=== PATIENT | female | born 1940 | race Caucasian/White ===

== ENCOUNTER 2024-10-09 11:12 | Outpatient (OUT) | payer MEDICARE, MEDICAID, SELFPAY ==
--- OUTSIDE RECORDS SUMMARY | 2024-10-09 06:49 | XMS_ITS | Continuity of Care Document ---
Author Organization [facility] Address [address] [place] [address] Phone Care Team Providers Care Peripheral Equipment Operator Name Role Phone Nando Zaldivar DO Attending Provider Christophe Chavez MD Primary Care Provider Care Teams Patient Care Team Team Status: Active Member Role Status Dates Christophe Chavez MD Primary Care Provider Active Patient Care Team Team Status: Inactive Member Role Status Dates Nando Zaldivar DO Attending Provider Active Start: October 09, 2024 End: October 09, 2024 Christophe Chavez MD Primary Care Provider Active S tart: October 09, 2024 End: October 09, 2024 Chief Complaint and Reason for Visit Reason for Visit Admit Date Late onset Alzheimer's demen tia without behavioral disturbance October 09, 2024 10:00am Allergies, Adverse Reactions, Alerts Allergen Type Severity Reaction Last Updated Verified Status No Known Allergies Allergy Unknown October 09, 2024 10:08 am Yes Active Social History Smoking Status Unknown if ever smoked Observation Status Observation Response Date of Response Legal Sex Female (finding) Sex Assigned At Female July Problems Active Problems Medical Problem Onset Date Status Late onset Alzheimer's dementia without behavior al disturbance Unknown Active Medications Medication Status Dose Units Route Directions Qty Days St art Date Stop Date End Date Instructions Adherence Atorvastati n 20 mg tablet Active 20 MG PO Daily October 09, 2024 12:00a m Complies with drug therapy Ibuprofen 600 mg tablet Active 600 MG PO Every 8 hours as needed October 09, 2024 12:00a m Complies with drug therapy Losartan 100 mg tablet Active 100 MG PO Daily October 09, 2024 12:00a m Complies with drug therapy Apixaban (Eliquis) 5 mg tablet Active 5 MG PO Twice daily October 09, 2024 12:00a m Complies with drug therapy Vital Signs Vital Reading Result Reference Range Collection Date/Time Weight 73.14 kg October 09, 2024 10:05am Heart Rate 88 /min 60-100 October 09, 2024 10:05am Oxygen saturation by Pulse oximetry 97 % 95-100 October 09, 2024 10:0 5am BP Systolic 152 mm[Hg] 100-140 October 09, 2024 10:05am BP Diastolic 84 mm[Hg] 60-100 October 09, 2024 10:05am Advance Directives Advance Directive Response Recorded Date/ Time Advance Directives No October 09 9:52am Insurance Providers Guarantor Janis Vargas Address [address] [place] [address] [id number] [place] [id number] Contact Info. Home Phone: Payer Policy Id Subscriber's Name Subscriber Id Effectiv e Date Expiration Date Medicaid [id number] Janis Vargas [id number] [employer] [facility] [id number] Janiskaleigh Vargas [id number] Encounters Encounter Location(s) Arrival/Admit Date Discharge/Depart Date Provider(s) Departed Physician/Prov ider Office Visit -[facility] [place] October 09, 2024 10:00am October 09, 2024 10:48am Jhon Chou DO Recent Diagnosis Onset Date Admit Date Late onset Alzheimer's demen tia without behavioral disturbance Unknown October 09, 2024 10:00am Assessments Diagnosis Onset Date Resolution Status Admit Date Late onset Alzheimer's demen tia without behavioral disturbance acute J 2024 10:00am Plan of Treatment Author Nando Zaldivar [facility] Authored October 09, 2024 10:4 6am It is my impression that the patient has severe memory impairment. Her Ko cognitive assessment today was 3/30. She did have some inattention which I think may have made this worse and she is actually capable of. However, I do feel that Alzheimer's dementia is our most likely diagnosis. We will need to rule out other reversible causes. Examination shows memory deficit and is otherwise largely unremarkable. Plan: MRI of the brain with and without contrast Check vitamin B12 Patient has previously trialed and failed Namenda We did discuss Aricept and the patient and family have politely declined Family was with her today and provided additional history he was understanding and agreeable to the plan Future Tests Future scheduled test information is unavailable Pending Tests Test Name Ordered Date Scheduled Date MR head/brain wo/w con October 09, 2024 10:46am Future Visits Future appointment information is unavailable Referrals to Other Providers Referral information is unavailable Future Procedures Procedure Name Ordered Date Scheduled Date Vitamin B12 October 09, 2024 10:46am Future Medications Future medication information is unavailable Patient Instructions Patient instructions are unavailable
--- OUTSIDE RECORDS SUMMARY | 2024-10-09 11:26 | XMS_ITS | Clinical Summary ---
Author Organization [employer] Address [id number] [address] [place] [address] Care Team Providers Care Cnc Operator Programmer Name Role Phone Christophe Chavez MD Primary Care Provider [phone] Allergies No known active allergies Medications multivit-minera ls/ferrous fum (MULTI VITAMIN ORAL) Take by mouth daily. Active polyethylene glycol (GLYCOLAX) 17 gram/dose powderIndicatio ns:Constipation , unspecified constipation type Take 17 g by mouth daily. 850 g 1 05/10/19 22 Active Additional Information Patient not taking.Reported on 05/31/2024 omega 1-cwf-bsk-fish oil 300-1,000 mg capsule Take by mouth. Acti ve ibuprofen (MOTRIN) 600 mg tablet Take 1 tablet (600 mg total) by mouth every 6 (six) hours as needed for pain. 30 tablet 02/05/20 22 Active memantine (NAMENDA) 5 mg tabletIndicatio ns:Memory problem,Mild dementia, unspecified dementia type, unspecified whether behavioral, psychotic, or mood disturbance or anxiety (CMS-HCC) Take 1 tablet (5 mg total) by mouth in the morning and 1 tablet (5 mg total) before bedtime. 60 tablet 5 10/12/19 24 Active Additional Information Patient not taking.Reported on 05/31/2024 apixaban (ELIQUIS DVT-PE TREAT 30D START) 5 mg (74 tabs) tablets,dose pack tablet Take 2 tablets by mouth twice daily for 7 days, then take 1 tablet twice daily 74 tablet 05/01/19 25 Active Additional Information Patient not taking.Reported on 05/31/2024 atorvastatin (LIPITOR) 20 mg tabletIndicatio ns:Essential hypertension TAKE 1 TABLET BY MOUTH IN THE MORNING 90 tablet 09/12/19 25 Active ELIQUIS 5 mg tablet TAKE 1 TABLET BY MOUTH IN THE MORNING AND 1 AT BEDTIME 60 tablet 09/20/19 25 Active losartan (COZAAR) 100 mg tabletIndicatio ns:Essential hypertension Take 1 tablet by mouth once daily 100 tablet 09/20/19 25 Active losartan (COZAAR) 100 mg tabletIndicatio ns:Essential hypertension Take 1 tablet by mouth once daily 90 tablet 2 02/21/20 24 025 Discontinued apixaban (ELIQUIS) 5 mg tablet Take 1 tablet (5 mg total) by mouth in the morning and 1 tablet (5 mg total) before bedtime. 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/05/2023 Hyperlipidemia 05/05/2023 Hyperglycemia 05/05/2023 Essential hypertension 09/20/2018 Encounters Date Type Department Care Team Description 09/19/2024 Refill [facility] [address] [place] [phone] Christophe Chavez MD Essential hypertension 09/14/2024 Refill [facility] [address] [place] [phone] Christophe Chavez MD 09/11/2024 Refill [facility] [address] [address] Christophe Chavez MD Essential hypertension 09/08/2024 Refill [facility] [address] [place] [address] [place] [address] Christophe Chavez MD Essential hypertension 08/28/2024 Orders Only [facility] [address] [place] [address] [place] [address] Christophe Chavez MD Mild vascular dementia, unspecified whether behavioral, psychotic, or mood disturbance or anxiety (CMS-HCC) (Primary Dx) 08/26/2024 Telephone [facility] [address] [place] [address] [place] [address] Christophe Chavez MD 08/25/2024 8:50 PM EDT - 08/25/2024 10:14 PM EDT Emergency [facility] - Emergency [address] [place] [phone] Karen Kelley MD Confusion (Primary Dx) Discharge Disposition: Home 08/25/2024 Travel from Last 3 Months Immunizations Immunization Administration Dates Next Due Influenza High Dose Preservative Free IM 021,03/26/2019 Influenza, High-dose, Quadrivalent 02/20/2020 Pneumococcal Conjugate 13-Valent 03/26/2019 Pneumococcal Polysaccharide 04/29/2021 Tdap 05/23/2024 Family History Medical History Relation Name Comments Cancer Father Diabetes Mother Hypertension Mother Relation Name Status Comments Father Mother Social History Tobacco Use Types Packs/Day Years Used Date Smoking Tobacco: Former Cigarettes 0.5 20 Smokeless Tobacco: Never Tobacco Cessation:Counseling Given: Not Answered Comments:not interested in quitting Alcohol Use Standard Drinks/Week Comments Not Currently 0 (1 standard drink = 0.6 oz pur e alcohol) Social Connection and Isolation Panel [NHANES] A nswer Date Recorded Frequency of Communication with Friends and Fami ly Three times a week 10/09/2018 Frequency of Social Gatherin gs with Friends and Family Three times a week 10/09/2018 Attends Congregational Services Never 10/09 Active Member of Clubs or Organizations No 10/09/2018 Attends Club or Organization Meetings Never 10/09/2018 Marital Status 10/09/2018 AUDIT-C Answer Date Recorded Frequency of Alcohol Consumption Never 10/09/2018 Average Number of Drinks Patient declined 2018 Frequency of Binge Drinking Never 09/16 Overall Financial Resource Strain (CARDIA) Answe r Date Recorded Difficulty of Paying Living Expenses Somewhat de la rosa rd 10/09/2018 PHQ-2 Answer Date Recorded Total Score 0 05/31/2024 [facility] of Occupat ional Health - Occupational Stress Questionnaire Answer Date Recorded Feeling of Stress To some extent 10/09/2018 Exercise Vital Sign Answer Date Recorde d Days of Exercise per Week 0 days 2018 Minutes of Exercise per Session 0 min 10/09/2018 PRAPARE - Transportation Answer Date Re corded Lack of Transportation (Medical) No 10/09/2018 Lack of Transportation (Non-Medical) No 10/09/2018 Childcare Answer Date Recorded Childcare No 10/09/2018 Employment Answer Date Recorded Employment No 10/09/2018 Hunger Screening Answer Date Recorded Within the past 12 months we worried whether our food would run out before we got money to buy more. Never True 08/25/2024 Within the past 12 months th e food we bought just didn't last and we didn't have money to get more. Never True 08/25/2024 Purpose - Life Answer Date Recorded Purpose and direction in life Unknown Education Answer Date Recorded What is the highest level of school you have completed or the highest degree you have received? 10th grade 10/09/2018 Comments No Sex and Gender Information Value Date Recorded Sex Assigned at Not on file Legal Sex Female 11:28 AM EDT Gender Identity Not on file Sexual Orientation Not on file Last Filed Vital Signs Vital Sign Reading Time Taken Comments Blood Pressure 161/71 08/25/2024 10:00 PM EDT Pulse 88 08/25/2024 10:00 PM EDT Temperature 37.1 C (98.7 F) 08/25/2024 8:54 PM EDT Respiratory Rate 18 08/25/2024 10:0 0 PM EDT Oxygen Saturation 95% 08/25/2024 10: 00 PM EDT Inhaled Oxygen Concentration - - Weight 75.3 kg (165 lb 14.4 oz) 08/25/2024 8:54 PM EDT Height 154.9 cm (5' 1 ) 08/25/2024 8:54 PM EDT Body Mass Index 31.35 08/25/2024 8:54 PM EDT Plan of Treatment Health Maintenance Due Date Last Done Comments Zoster (Shingles) Vaccine (1 of 2) 1992 Medicare Annual Wellness Visit 04/29/2022 0 04/29/2021, 04/06/2020, 03/26/2019 Fall Risk Screening 01/07/2023 01/07/2022 Influenza Vaccine 12/16/2024 03/23/2021, , 03/26/2019 Depression Screening 05/31/2025 05/31/2024 Tobacco Screening 08/25/2025 08/25/2024 DTaP,Tdap and Td Vaccines (2 - Td or Tdap) 05/23/2034 05/23/2024 Medical Devices Not on file [place] [id number] [place] [address] [employer] MED[employer] WORKER'S COMPENSATION Care Teams Cnc Operator Programmer Relationship Specialty Start Date End Date Christophe Chavez MD [address] [facility] [address] [place], [place] [phone] PCP - General Internal Medicine 05/23/24
--- OUTSIDE RECORDS SUMMARY | 2024-10-09 11:26 | XMS_ITS | Encounter Summary ---
Author Organization [employer] Address [id number] [address] [place] [address] Care Team Providers Care Medical Technologist Blood Bank Name Role Phone Christophe Chavez MD Primary Care Provider [phone] Encounter Details Date Type Department Care Team (Late st Contact Info) Description 09/21/2021 [facility] [address] [place] [phone] Anna Dhaliwal LPN Social History Tobacco Use Types Packs/Day Years Used Date Smoking Tobacco: Every Day Cigarettes 0.3 20 Smokeless Tobacco: Never Comments:not interested in q uitting Alcohol Use Standard Drinks/Week Comments Not Currently 0 (1 standard drink = 0.6 oz pur e alcohol) Social Connection and Isolation Panel [NHANES] A nswer Date Recorded Frequency of Communication with Friends and Fami ly Three times a week 10/09/2018 Frequency of Social Gatherin gs with Friends and Family Three times a week 10/09/2018 Attends Islam Services Never 10/09 Active Member of Clubs [...] PHQ-2 Answer Date Recorded Total Score 0 09/02/2021 [facility] [place] of Occupat ional Health - Occupational Stress [...] Employment Answer Date Recorded Employment No 10/09/2018 Purpose - Life Answer Date Recorded Purpose [...] on file Sexual Orientation Not on file COVID-19 Exposure Response Date Recorded In the last 10 days, have yo u been in contact with someone who was confirmed or suspected to have Coronavirus/COVID-19? No / Unsure 09/02/2021 2:17 PM EDT documented as of this encounter Miscellaneous Notes * Telephone Encounter - Anna Dhaliwal LPN - 09/21/2021 7:39 AM EDT Patient is scheduled for Video Urodynamics for uterovaginal prolapse on 09/25 at [facility] per your request prior to Colpoclesis. Patient apparently does not have HERNESTO. Do you want me to do the study with a non obstructing ring with support pessary in place to see if she leaks with bladder supported? Please advise. Thanks, Mikaela Dhaliwal LPN * Telephone Encounter - Jaxon Vela MD - 09/21/2021 7:39 AM EDT That would be great thank you adjusted to see if she will need a sling with her colpocleisis documented in this encounter Plan of Treatment Not on file documented as of this encounter Visit Diagnoses Not on filedocumented in this encounter Additional Health Concerns Assessment Noted Time PHQ-9 Depression Total Score: 0 09/03/19 2:24 PM EDT A Body Mass Index follow-up plan has been documented for the patient 04/06/2020 2:56 PM EST documented as of this encounter Care Teams Medical Technologist Blood Bank Relationship Specialty Start Date End Date Christophe Chavez MD [address] [facility] [place] [address] PCP - General Internal Medicine 05/23/24 documented as of this encounter
--- OUTSIDE RECORDS SUMMARY | 2024-10-09 11:26 | XMS_ITS | Encounter Summary ---
Author Organization [facility] Address [facility] [id number] [address] [place] [address] Care Team Providers Care Car Sweeper Name Role Phone Christophe Chavez MD Primary Care Provider [phone] Reason for Visit * Reason Comments Med Refill Encounter Details Date Type Department Care Team (Late st Contact Info) Description 02/12/2020 Refill [facility] [address] [place] [address] [place] [phone] Nida Soto, EVAPORATIVE COOLER INSTALLER-SPIKE DRIVER [address] [place] [address] Essential hypertension Social History Tobacco Use Types Packs/Day Years Used Date Smoking Tobacco: Every Day Cigarettes 0.5 20 Smokeless Tobacco: Never Alcohol Use Standard Drinks/Week Comments Not Currently 0 (1 standard drink = 0.6 oz pur e alcohol) Social Connection and Isolation Panel [NHANES] A nswer Date Recorded Frequency of Communication with Friends and Fami ly Three times a week 10/09/2018 Frequency of Social Gatherin gs with Friends and Family Three times a week 10/09/2018 Attends Episcopal Services Never 10/09 Active Member of Clubs [...] rosa rd 10/09/2018 PHQ-2 Answer Date Recorded PHQ-2 Score 0 09/20/2018 [facility] of Occupat ional Health - Occupational Stress [...] Employment Answer Date Recorded Employment No 10/09/2018 Education Answer Date Recorded What is the highest level of school you have completed or the highest degree you have received? 10th grade 10/09/2018 Comments No Sex and Gender Information Value Date Recorded Sex Assigned at Not on file Legal Sex Female 11:28 AM EDT Gender Identity Not on file Sexual Orientation Not on file documented as of this encounter Miscellaneous Notes * Telephone Encounter - TSERIGN Ivy - 02/12/2020 2:05 PM EDT Patient will need an appointment for additional refills documented in this encounter Plan of Treatment Not on file documented as of this encounter Visit Diagnoses Diagnosis Essential hypertension Unspecified essential hypertension documented in this encounter Additional Health Concerns Assessment Noted Time PHQ-9 Depression Total Score: 0 03/26/20 19 2:30 PM EST A Body Mass Index follow-up plan has been documented for the patient 08/28/2018 11:34 AM EDT documented as of this encounter Care Teams Car Sweeper Relationship Specialty Start Date End Date Christophe Chavez MD [address] [facility] [place] [address] PCP - General Internal Medicine 05/23/24 documented as of this encounter
--- OUTSIDE RECORDS SUMMARY | 2024-10-09 11:26 | XMS_ITS | Encounter Summary ---
[facility] Address [id number] [address] [place] [address] Care Team Providers Care Netsuite Developer Name Role Phone Christophe Chavez MD Primary Care Provider Reason for Visit * Reason Onset Date Comments Med Refill 06/06/2024 Encounter Details Date Type Department Care Team (Late st Contact Info) Description 06/06/2024 Refill [facility] [address] [place] [address] [place] [phone] Eliane Dominguez CMA Essential hypertension Social History Tobacco Use Types Packs/Day Years Used Date Smoking Tobacco: Former Cigarettes 0.5 20 Smokeless Tobacco: Never Comments:not interested in [...] Family Three times a week 10/09/2018 Attends Zoroastrian Services Never 10/09 Active Member of Clubs [...] Answer Date Recorded Total Score 0 05/31/2024 [facility] - Occupational Stress Questionnaire Answer Date Recorded [...] got money to buy more. Never True 05/31/2024 Within the past 12 months th e food we bought just didn't last and we didn't have money to get more. Never True 05/31/2024 Purpose - Life Answer Date Recorded Purpose [...] on file documented as of this encounter Plan of Treatment Not on file documented as of this encounter Visit Diagnoses Diagnosis Essential hypertension Unspecified essential hypertension documented in this encounter Additional Health Concerns Assessment Noted Time PHQ-9 Depression Total Score: 0 05/31/19 25 10:47 AM EST A Body Mass Index follow-up plan has been documented for the patient 05/05/2023 5:07 PM EST documented as of this encounter Care Teams Netsuite Developer Relationship Specialty Start Date End Date Christophe Chavez MD [address] [facility] [place] [address] PCP - General Internal Medicine 05/23/24 documented as of this encounter
--- OUTSIDE RECORDS SUMMARY | 2024-10-09 11:26 | XMS_ITS | Encounter Summary ---
Author Organization [employer] Address [id number] [address] [place] [address] Care Team Providers Care Selling Manager Name Role Phone Christophe Bobby MD Primary Care Provider [phone] Encounter Details Date Type Department Care Team (Late st Contact Info) Description 09/20/2022 [facility] [address] [place] [address] [place] [address] Jackie Pop CMA Social History Tobacco Use Types Packs/Day Years [...] Family Three times a week 10/09/2018 Attends Yazdanism Services Never 10/09 Active Member of Clubs [...] Answer Date Recorded Total Score 0 09/02/2021 [facility] of Occupat ional Health - Occupational Stress [...] got money to buy more. Never True 08/16/2022 Within the past 12 months th e food we bought just didn't last and we didn't have money to get more. Never True 08/16/2022 Purpose - Life Answer Date Recorded Purpose [...] encounter Miscellaneous Notes * Telephone Encounter - Jackie Pop CMA - 09/20/2022 4:05 PM EDT Pharmacy called into office seeking clarification in regards to Fosamax, looking to make sure provider wants patient to take once a week for 7 weeks not once a day for 7 days. Please advise * Telephone Encounter - Christophe Bobby MD - 09/20/2022 4:05 PM EDT Once a week for 7 days please. Thanks, CHRISTOPHE BOBBY MD 09/23/22 * Telephone Encounter - Jackie Pop CMA - 09/20/2022 4:05 PM EDT Patient was called to be given instruction, daughter answered phone POA and took down information, she stated she understands. documented in this encounter Plan of Treatment Not on file documented as of this encounter Visit Diagnoses Not on filedocumented in this encounter Additional Health Concerns Assessment Noted Time PHQ-9 Depression Total Score: 0 09/03/19 22 2:24 PM EDT A Body Mass Index follow-up plan has been documented for the patient 04/06/2020 2:56 PM EST documented as of this encounter Care Teams Selling Manager Relationship Specialty Start Date End Date Christophe Bobby MD [address] [facility] [place] [address] PCP - General Internal Medicine 05/23/24 documented as of this encounter
--- OUTSIDE RECORDS SUMMARY | 2024-10-09 11:26 | XMS_ITS | Encounter Summary ---
Author Organization [employer] Sys tem Address [id number] [address] [place] [address] Care Team Providers Care Supervisor Mails Name Role Phone Christophe Chavez MD Primary Care Provider [phone] Encounter Details Date Type Department Care Team (Late st Contact Info) Description 10/25/2021 Telephone [facility] Obst[facility]necology [address] [place] [id number] Shireen Noble Social History Tobacco Use Types Packs/Day Years [...] Family Three times a week 10/09/2018 Attends Congregation Services Never 10/09 Active Member of Clubs [...] Answer Date Recorded Total Score 0 09/02/2021 [facility] [place] of Occupat ional Health - Occupational Stress [...] Exposure Response Date Recorded In the last month, have you been in contact with someone who was confirmed or suspected to have Coronavirus / COVID-19? No / Unsure 10/11/2021 7:40 AM EDT documented as of this encounter Miscellaneous Notes * Telephone Encounter - Shireenramesh Noble - 10/25/2021 10:13 AM EDT Patient's daughter, Theresa (on HIPAA), called to see if we got the patient's results from her test from 10/11/21 and to see what she should do next or if she needs to schedule an appt for the results. Itlooks like the results were being forwarded to you. Please advise. Thank you. documented in this encounter Plan of Treatment Not on file documented as of this encounter Visit Diagnoses Not on filedocumented in this encounter Additional Health Concerns Assessment Noted Time PHQ-9 Depression Total Score: 0 09/03/19 22 2:24 PM EDT A Body Mass Index follow-up plan has been documented for the patient 04/06/2020 2:56 PM EST documented as of this encounter Care Teams Supervisor Mails Relationship Specialty Start Date End Date Christophe Chavez MD [address] [place] [address] PCP - General Internal Medicine 05/23/24 documented as of this encounter
--- OUTSIDE RECORDS SUMMARY | 2024-10-09 11:26 | XMS_ITS | Encounter Summary ---
Author Organization [employer] Sys [employer] Address [id number] [address] [place] [address] Care Team Providers Care Electronic Drafter Name Role Phone Christophe Chavez MD Primary Care Provider [phone] Encounter Details Date Type Department Care Team (Late st Contact Info) Description 01/30/2020 Orders Only [facility] Family Medicine [address] [place] [address] [place] [phone] Ref Prov, [place] [address] Social History Tobacco Use Types Packs/Day Years [...] Family Three times a week 10/09/2018 Attends Samaritan Services Never 10/09 Active Member of Clubs [...] Answer Date Recorded PHQ-2 Score 0 09/20/2018 [facility] [place] of Occupat ional Health - Occupational Stress [...] on file documented as of this encounter Procedures Procedure Name Priority Date/Time Associated Diagnosis Comments SARS COV 2 (COVID-19) Routine 01/30/2020 documented in this encounter Results * SARS COV 2 (COVID-19) (01/30/2020) us Not In System Ref Prov MICROBIOLOGY - GENERAL OR DERABLES Final Result MANUALLY TRANSCRIBED RESULTS documented in this encounter Visit Diagnoses Not on filedocumented in this encounter Additional Health Concerns Assessment Noted Time PHQ-9 Depression Total Score: 0 03/26/20 19 2:30 PM EST A Body Mass Index follow-up plan has been documented for the patient 08/28/2018 11:34 AM EDT documented as of this encounter Care Teams Electronic Drafter Relationship Specialty Start Date End Date Christophe Chavez MD [address] [facility] [place] [address] PCP - General Internal Medicine 05/23/24 documented as of this encounter
--- OUTSIDE RECORDS SUMMARY | 2024-10-09 11:26 | XMS_ITS | Encounter Summary ---
Author Organization [employer] Address [id number] [address] [place] [address] Care Team Providers Care Fortune Teller Name Role Phone Christophe Chavez MD Primary Care Provider [phone] Encounter Details Date Type Department Care Team (Late st Contact Info) Description 02/19/2020 Telephone [facility] Family Medicine [address] [place] [address] [place] [address] Karsten Muñoz CMA Social History Tobacco Use Types Packs/Day [...] Family Three times a week 10/09/2018 Attends Scientologist Services Never 10/09 Active Member of Clubs [...] Answer Date Recorded PHQ-2 Score 0 09/20/2018 [facility] [place] of Occupat ional Health - Occupational Stress [...] have Coronavirus / COVID-19? No / Unsure 02/20/2020 3:22 PM EST documented as of this encounter Miscellaneous Notes * Telephone Encounter - Karsten Washington CMA - 02/19/2020 10:12 AM EST I called Janis to schedule an appointment for her medication refills. She did not answer and hervoicemail box is full. I called her daughter Theresa and left a voicemail to have her mother Janis call the office back. Karsten Washington CMA 02/19/20 1014 * Telephone Encounter - Karsten Washington CMA - 02/19/2020 10:12 AM EST Spoke with Janis and got her set up for an appointment to see Nida. documented in this encounter Plan of Treatment Not on file documented as of this encounter Visit Diagnoses Not on filedocumented in this encounter Additional Health Concerns Assessment Noted Time PHQ-9 Depression Total Score: 0 03/26/20 19 2:30 PM EST A Body Mass Index follow-up plan has been documented for the patient 08/28/2018 11:34 AM EDT documented as of this encounter Care Teams Fortune Teller Relationship Specialty Start Date End Date Christophe Chavez MD [address] [facility] [place] [id number] PCP - General Internal Medicine 05/23/24 documented as of this encounter
--- OUTSIDE RECORDS SUMMARY | 2024-10-09 11:26 | XMS_ITS | Encounter Summary ---
Author Organization [facility] [employer] [facility] Address [id number] [address] [place] [address] Care Team Providers Care Medical Staff Physician Name Role Phone Christophe Chavez MD Primary Care Provider [phone] Encounter Details Date Type Department Care Team (Late st Contact Info) Description 09/21/2022 Orders Only [facility] Family Medicine [address] [facility] [place] [place] [address] [place] [address] Sarika Randle, NEWS CORRESPONDENT-UNDERWEAR WELTER [address], [place] [place] [address] Social History Tobacco Use Types Packs/Day Years [...] Family Three times a week 10/09/2018 Attends Jainism Services Never 10/09 Active Member of Clubs [...] Answer Date Recorded Total Score 0 09/02/2021 [facility] of Occupat ional Health - Occupational Stress [...] as of this encounter Care Teams Medical Staff Physician Relationship Specialty Start Date End Date Christophe Chavez MD [address] [facility] [place] [address] PCP - General Internal Medicine 05/23/24 documented as of this encounter
--- OUTSIDE RECORDS SUMMARY | 2024-10-09 11:26 | XMS_ITS | Encounter Summary ---
Author Organization [employer] Address [id number] [address] [place] [address] Care Team Providers Care Concrete Engineer Name Role Phone Christophe Chavez MD Primary Care Provider [phone] Reason for Visit * Reason Comments Med Refill Encounter Details Date Type Department Care Team (Late st Contact Info) Description 10/27/2021 Refill [facility] Family Medicine [address] [place] [address] [place] [phone] Nida Soto, CAMPAIGN WORKER-DIRECTOR TELECOMMUNICATIONS [address] [facility] [address] [place] [address] Hypertension, unspecified type Social History Tobacco Use Types Packs/Day Years [...] Family Three times a week 10/09/2018 Attends Protestant Services Never 10/09 Active Member of Clubs [...] Answer Date Recorded Total Score 0 09/02/2021 [facility] of Occupat ional Health - Occupational Stress [...] AM EDT documented as of this encounter Plan of Treatment Not on file documented as of this encounter Visit Diagnoses Diagnosis Hypertension, unspecified type documented in this encounter Additional Health Concerns Assessment Noted Time PHQ-9 Depression Total Score: 0 09/03/19 22 2:24 PM EDT A Body Mass Index follow-up plan has been documented for the patient 04/06/2020 2:56 PM EST documented as of this encounter Care Teams Concrete Engineer Relationship Specialty Start Date End Date Christophe Chavez MD [address] [facility] [place] [address] PCP - General Internal Medicine 05/23/24 documented as of this encounter
--- OUTSIDE RECORDS SUMMARY | 2024-10-09 11:26 | XMS_ITS | Encounter Summary ---
Author Organization [facility] [employer] Address [id number] [address] [place] [address] Care Team Providers Care Telegrapher Agent Name Role Phone Christophe Chavez MD Primary Care Provider [phone] Reason for Visit * Reason Comments Med Refill Encounter Details Date Type Department Care Team (Late st Contact Info) Description 07/17/2020 Refill [facility] Family [facility] [address] [place] [address] [place] [phone] Nida Soto, RECREATION THERAPY DIRECTOR-SALES DEVELOPMENT COORDINATOR [address] [facility] [address] [place] [address] Essential hypertension Social History Tobacco Use Types [...] Family Three times a week 10/09/2018 Attends Cheondoism Services Never 10/09 Active Member of Clubs [...] PHQ-2 Answer Date Recorded Total Score 0 04/06/2020 [facility] [place] of Occupat ional Health - Occupational Stress [...] Noted Time PHQ-9 Depression Total Score: 0 04/06/20 20 2:00 PM EST A Body Mass Index follow-up plan has been documented for the patient 04/06/2020 2:56 PM EST documented as of this encounter Care Teams Telegrapher Agent Relationship Specialty Start Date End Date Christophe Chavez MD [address] [facility] [place] [address] PCP - General Internal Medicine 05/23/24 documented as of this encounter
--- OUTSIDE RECORDS SUMMARY | 2024-10-09 11:26 | XMS_ITS | Encounter Summary ---
Author Organization [facility] Address [facility][id number] [address] [place] [address] Care Team Providers Care Quarry Supervisor Dimension Stone Name Role Phone Christophe Chavez MD Primary Care Provider [phone] Reason for Visit * Reason Onset Date Comments Med Refill 02/18/2020 Encounter Details Date Type Department Care Team (Late st Contact Info) Description 02/18/2020 Refill [facility] [address] [place] [address] [place] [phone] Chantelle Sam CMA Age-related osteoporosis without current pathological fracture; Essential hypertension Social History Tobacco Use Types [...] Answer Date Recorded PHQ-2 Score 0 09/20/2018 [facility] [place] of Occupat ional Health - Occupational Stress [...] encounter Miscellaneous Notes * Telephone Encounter - TSERING Ivy - 02/18/2020 1:49 PM EST Patient needs an appointment for medication refills * Telephone Encounter - Karsten Washington CMA - 02/18/2020 1:49 PM EST I got Tanvi scheduled for tomorrow at 3:30pm to review medications. * Telephone Encounter - Chantelle Sam CMA - 02/18/2020 1:49 PM EST Patient is out of bp meds, she left 2 messages today on phone. She has appt tomorrow. Chantelle Sam CMA 02/19/20 1526 documented in this encounter Plan of Treatment Not on file documented as of this encounter Visit Diagnoses Diagnosis Age-related osteoporosis without current pathological fracture Essential hypertension Unspecified essential hypertension documented in this encounter Additional Health Concerns Assessment Noted Time PHQ-9 Depression Total Score: 0 03/26/20 19 2:30 PM EST A Body Mass Index follow-up plan has been documented for the patient 08/28/2018 11:34 AM EDT documented as of this encounter Care Teams Quarry Supervisor Dimension Stone Relationship Specialty Start Date End Date Christophe Chavez MD [address] [facility] [place] [address] PCP - General Internal Medicine 05/23/24 documented as of this encounter
--- OUTSIDE RECORDS SUMMARY | 2024-10-09 11:26 | XMS_ITS | Encounter Summary ---
Author Organization [employer] Sys tem Address [id number] [address] [place] [address] Care Team Providers Care Dry Kiln Worker Name Role Phone Christophe Bobby MD Primary Care Provider [phone] Encounter Details Date Type Department Care Team (Late st Contact Info) Description 08/26/2024 Telephone [facility] Family Medicine [address] [place] [address] [place] [address] Christophe Bobby MD 605 [facility] [place] [address] Social History Tobacco Use Types [...] Family Three times a week 10/09/2018 Attends Mormonism Services Never 10/09 Active Member of Clubs [...] Answer Date Recorded Total Score 0 05/31/2024 [facility] [place] of Occupat ional Health - Occupational Stress [...] encounter Miscellaneous Notes * Telephone Encounter - Maria Isabel Warren - 08/26/2024 9:50 AM EDT Patient currently sees Dr. Smyth for Neurology, but would like new referral placed and faxed to Dr. Ronn Solis, Neurologist with [facility] Would like faxed to [place], [place] location. Please advise. * Telephone Encounter - Christophe Bobby MD - 08/26/2024 9:50 AM EDT Order/Rx placed. Please call and notify patient. Thanks, CHRISTOPHE BOBBY MD 08/28/24 documented in this encounter Plan of Treatment Not on file documented as of this encounter Visit Diagnoses Not on filedocumented in this encounter Additional Health Concerns Assessment Noted Time PHQ-9 Depression Total Score: 0 05/31/19 10:47 AM EST A Body Mass Index follow-up plan has been documented for the patient 05/05/2023 5:07 PM EST documented as of this encounter Care Teams Dry Kiln Worker Relationship Specialty Start Date End Date Christophe Bobby MD [address] [facility] [address] PCP - General Internal Medicine 05/23/24 documented as of this encounter
--- OUTSIDE RECORDS SUMMARY | 2024-10-09 11:26 | XMS_ITS | Encounter Summary ---
Author Organization [employer] Address [id number] [address] [place] [address] Care Team Providers Care Take Off Man Name Role Phone Christophe Chavez MD Primary Care Provider [phone] Reason for Visit * Reason Comments Med Refill Encounter Details Date Type Department Care Team (Late st Contact Info) Description 01/26/2020 Refill [facility] [address] [place] [address] [place] [phone] Dustin Flores MD [address] [facility]. Provider retired 07/16/24 [place], [place] [id number] Hyperlipidemia, unspecified hyperlipidemia type Social History Tobacco Use Types Packs/Day [...] Answer Date Recorded PHQ-2 Score 0 09/20/2018 [facility] [place] of Occupat ional Health - Occupational Stress [...] as of this encounter Visit Diagnoses Diagnosis Hyperlipidemia, unspecified hyperlipidemia type documented in this encounter Additional Health Concerns Assessment Noted Time PHQ-9 Depression Total Score: 0 03/26/20 19 2:30 PM EST A Body Mass Index follow-up plan has been documented for the patient 08/28/2018 11:34 AM EDT documented as of this encounter Care Teams Take Off Man Relationship Specialty Start Date End Date Christophe Chavez MD [address] [facility] [place] [address] PCP - General Internal Medicine 05/23/24 documented as of this encounter
--- OUTSIDE RECORDS SUMMARY | 2024-10-09 11:26 | XMS_ITS | Encounter Summary ---
Author Organization [employer] Address [place]-[id number] [address] [place] [address] Care Team Providers Care Senior Instructional Designer Name Role Phone Christophe Chavez MD Primary Care Provider Encounter Details Date Type Department Care Team (Late st Contact Info) Description 01/28/2020 Telephone [facility] Family Medicine [address] [place] [address] [place] [address] Chantelle Sam CMA Social History Tobacco Use Types Packs/Day [...] Family Three times a week 10/09/2018 Attends Confucianist Services Never 10/09 Active Member of Clubs [...] Answer Date Recorded PHQ-2 Score 0 09/20/2018 [facility] [place] of Occupat ional Health - Occupational Stress [...] encounter Miscellaneous Notes * Telephone Encounter - Chantelle Sam CMA - 01/28/2020 10:10 AM EDT Patient called stating she hasnt felt good for 4-5 days. shes got chills and headache. She thinks she maybe have a fever too but she's unsure. Advise? She wasn't very easy to clarify her symptoms. Chantelle Sam CMA 01/28/20 1012 * Telephone Encounter - TSERING Ivy - 01/28/2020 10:10 AM EDT Has she been exposed to COVID? Does she have a fever? Any additional symptoms? * Telephone Encounter - Chantelle Sam CMA - 01/28/2020 10:10 AM EDT Cough, headache, chills. Has no thermometer to check temp. She doesn't think she has fever now but does think she had one the other day. * Telephone Encounter - TSERING Ivy - 01/28/2020 10:10 AM EDT Schedule patient for 1:45 PM today as a same day * Telephone Encounter - Chantelle Sam CMA - 01/28/2020 10:10 AM EDT Covid test faxed to [facility]. Patient aware documented in this encounter Plan of Treatment Not on file documented as of this encounter Visit Diagnoses Not on filedocumented in this encounter Additional Health Concerns Assessment Noted Time PHQ-9 Depression Total Score: 0 03/26/20 19 2:30 PM EST A Body Mass Index follow-up plan has been documented for the patient 08/28/2018 11:34 AM EDT documented as of this encounter Care Teams Senior Instructional Designer Relationship Specialty Start Date End Date Christophe Chavez MD 605 [facility] [place] [address] PCP - General Internal Medicine 05/23/24 documented as of this encounter
--- OUTSIDE RECORDS SUMMARY | 2024-10-09 11:26 | XMS_ITS | Encounter Summary ---
Author Organization [employer] Address [id number] [address] [place] [address] Care Team Providers Care Material Requirements Planning Manager Name Role Phone Christophe Chavez MD Primary Care Provider [phone] Encounter Details Date Type Department Care Team (Late st Contact Info) Description 08/19/2021 Telephone [facility] [address] [place], [place] [phone] Hazel Womack PA [address] [place] [address] Social History Tobacco Use Types Packs/Day Years [...] Family Three times a week 10/09/2018 Attends Mandaeism Services Never 10/09 Active Member of Clubs [...] PHQ-2 Answer Date Recorded Total Score 0 08/10/2021 [facility] [place] of Occupat ional Health - Occupational Stress [...] suspected to have Coronavirus/COVID-19? No / Unsure 08/18/2021 10:33 AM EDT documented as of this encounter Miscellaneous Notes * Telephone Encounter - ELZA Zamarripa - 08/19/2021 12:48 PM EDT Please schedule her for [employer]. Put in the appointment line Forward results to Dr. Vela (AUTO RENTAL CLERK). Please call her daughter Theresa Keenan at [phone] when scheduling documented in this encounter Plan of Treatment Not on file documented as of this encounter Visit Diagnoses Not on filedocumented in this encounter Additional Health Concerns Assessment Noted Time PHQ-9 Depression Total Score: 0 08/11/19 22 2:01 PM EDT A Body Mass Index follow-up plan has been documented for the patient 04/06/2020 2:56 PM EST documented as of this encounter Care Teams Material Requirements Planning Manager Relationship Specialty Start Date End Date Christophe Chavez MD [address] [facility] [place] [address] PCP - General Internal Medicine 05/23/24 documented as of this encounter
--- OUTSIDE RECORDS SUMMARY | 2024-10-09 11:26 | XMS_ITS | Encounter Summary ---
Author Organization [facility] Address [facility] [id number] [address] [place] [address] Care Team Providers Care Steam Press Tender Name Role Phone Christophe Chavez MD Primary Care Provider [phone] Reason for Visit * Reason Comments Med Refill Encounter Details Date Type Department Care Team (Late st Contact Info) Description 04/22/2021 Refill [facility] [address] [place] [address] [place] [phone] Nida Soto, CONTRACTS PARALEGAL-FREIGHT CAR CLEANER [address] [facility] [address] [place] [address] Age-related osteoporosis without current pathological fracture Social History Tobacco Use Types Packs/Day Years Used Date Smoking Tobacco: Every Day Cigarettes 0.3 20 Smokeless Tobacco: Never Alcohol Use Standard Drinks/Week Comments Not Currently 0 (1 standard drink = 0.6 oz pur e alcohol) Social Connection and Isolation Panel [NHANES] A nswer Date Recorded Frequency of Communication with Friends and Fami ly Three times a week 10/09/2018 Frequency of Social Gatherin gs with Friends and Family Three times a week 10/09/2018 Attends Roman Catholic Services Never 10/09 Active Member of Clubs [...] PHQ-2 Answer Date Recorded Total Score 0 03/23/2021 [facility] [place] of Occupat ional Health - Occupational Stress [...] have Coronavirus / COVID-19? No / Unsure 03/25/2021 2:40 PM EST documented as of this encounter Plan of Treatment Not on file documented as of this encounter Visit Diagnoses Diagnosis Age-related osteoporosis without current pathological fracture documented in this encounter Additional Health Concerns Assessment Noted Time PHQ-9 Depression Total Score: 0 03/23/20 21 3:08 PM EST A Body Mass Index follow-up plan has been documented for the patient 04/06/2020 2:56 PM EST documented as of this encounter Care Teams Steam Press Tender Relationship Specialty Start Date End Date Christophe Chavez MD [address] [facility] [place] [address] PCP - General Internal Medicine 05/23/24 documented as of this encounter
--- OUTSIDE RECORDS SUMMARY | 2024-10-09 11:26 | XMS_ITS | Encounter Summary ---
Author Organization [employer] Sys tem Address [id number] [address] [place] [address] Care Team Providers Care Brown Sourer Name Role Phone Christophe Chavez MD Primary Care Provider [phone] Encounter Details Date Type Department Care Team (Late st Contact Info) Description 10/11/2021 Orders Only [facility] [address] [place] [id number] [place] Uterine prolapse; Urinary incontinence, unspecified type Social History Tobacco Use Types [...] Family Three times a week 10/09/2018 Attends Confucianism Services Never 10/09 Active Member of Clubs [...] Answer Date Recorded Total Score 0 09/02/2021 [place] [facility] - Occupational Stress [...] Procedure Name Priority Date/Time Associated Diagnosis Comments CYSTOMETROGRAM Routine 10/11/2021 12:44 PM EDT Uterine prolapse Urinary incontinence, unspecified type documented in this encounter Results * Cystometrogram (10/11/2021 12:44 PM EDT) [facility] PROCEDURE ORDERABLES Fin al Result MANUALLY TRANSCRIBED RESULTS documented in this encounter Visit Diagnoses Diagnosis Uterine prolapse Uterine prolapse without mention of vaginal wall prolapse Urinary incontinence, unspecified type documented in this encounter Additional Health Concerns Assessment Noted Time PHQ-9 Depression Total Score: 0 09/03/19 22 2:24 PM EDT A Body Mass Index follow-up plan has been documented for the patient 04/06/2020 2:56 PM EST documented as of this encounter Care Teams Brown Sourer Relationship Specialty Start Date End Date Christophe Chavez MD [address] [place] [address] PCP - General Internal Medicine 05/23/24 documented as of this encounter
--- OUTSIDE RECORDS SUMMARY | 2024-10-09 11:26 | XMS_ITS | Encounter Summary ---
Author Organization [employer] Address [facility] [id number] [address] [place] [address] Care Team Providers Care Jigger Machine Operator Name Role Phone Christophe Chavez MD Primary Care Provider [phone] Encounter Details Date Type Department Care Team (Late st Contact Info) Description 02/04/2020 Telephone [facility] [address] [place] [address] [place] [address] Chantelle Sam CMA Social History [...] Family Three times a week 10/09/2018 Attends Scientology Services Never 10/09 Active Member of Clubs [...] Answer Date Recorded PHQ-2 Score 0 09/20/2018 [facility] of Occupat ional Health - Occupational Stress [...] Telephone Encounter - Chantelle Sam CMA - 02/04/2020 8:35 AM EDT Patient called to have Covid 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 Chantelle Sam CMA 02/04/20 0837 documented in this encounter Plan of Treatment Not on file documented as of this encounter Visit Diagnoses Not on filedocumented in this encounter Additional Health Concerns Assessment Noted Time PHQ-9 Depression Total Score: 0 03/26/20 19 2:30 PM EST A Body Mass Index follow-up plan has been documented for the patient 08/28/2018 11:34 AM EDT documented as of this encounter Care Teams Jigger Machine Operator Relationship Specialty Start Date End Date Christophe Chavez MD [address] [facility] [place] [address] PCP - General Internal Medicine 05/23/24 documented as of this encounter
[2024-10-10 04:07] LABS: Vitamin B12 400 pg/mL (232-1245)
== END 2024-10-09 11:13 | disposition home or self-care (01) ==
PROVIDERS: PCP Student in an Organized Health Care Education/Training Program; Visit Provider Psychiatry & Neurology Neurology
DX: G30.1 Alzheimer's disease with late onset (principal); F02.80 Dementia in other diseases classified elsewhere, unspecified severity, without behavioral disturbance, psychotic disturbance, mood disturbance, and anxiety
CPT/HCPCS: 36415; 82607

== ENCOUNTER 2025-03-21 10:58 | Inpatient (IN) | payer MEDICARE, MEDICAID, SELFPAY ==
[2025-03-21] VITALS (37 sets, daily range): BP systolic 114–156; BP diastolic 57–75; PULSE 82–98; TEMP 36.4–37.1; O2SAT 75–96; BMI 29.7; BMI 29.4
--- NOTE | 2025-03-21 11:11 | ECG_ITS ---
[facility] Test Date: 2025-03-21 Pat Name: WILMA STALLINGS Department: Room: - Gender: Female Electric Train Driver: : 1940 Requested By: [id number] Order Number: [id number] Reading MD: CARLEEN BRADY M.D. Measurements Intervals [place] Rate: 88 P: 58 UT: 178 QRS: 13 QRSD: 68 T: 65 QT: 354 QTc: 400 Interpretive Statements 1100 Sinus rhythm 9110 normal ECG No previous ECG available for comparison Electronically Signed On 03-21-2025 21:54:51 EST by CARLEEN BRADY M.D.
--- NOTE | 2025-03-21 11:11 | XR_ITS ---
The [place] [id number] Patient Name: WILMA STALLINGS MRN: [id number] date: 1940 Sex: F Assigned Patient Location: ED.MAIN Current Patient Location: ED.MAIN Accession/Order Number: [id number] Exam Date: 03/21/2025 11:20 Report Date: 03/21/2025 12:10 At the request of: DOMENICO LUIS MD Procedure: XR chest 1V Single view chest: CLINICAL HISTORY: CP/SOB COMPARISON: None FINDINGS: Cardiomegaly with mild vascular congestion. No consolidation pneumothorax or large pleural effusion or free air. XR/XR chest 1V IMPRESSION: CHF FINDINGS. NO CONSOLIDATION TO SUGGEST PNEUMONIA. Impression dictated by: Jason Tinsley Jr. [id number] 03/21/2025 12:10 PM Dictation Location: [place] [address] Electronically authenticated by: [id number] Y Date: 03/21/2025 12:10
--- NOTE | 2025-03-21 11:12 | ED_ITS ---
HPI HPI - General Adult General Chief complaint: Shortness of Breath/Dyspnea Stated complaint: CHEST PAIN, SOB, WEAKNESS Time Seen by Provider: 03/21/25 10:59 Source: other Source information: Leighann from [facility] and also [facility] Mode of arrival: ambulance Limitations: altered mental status Limitations comment: history of dementia History of Present Illness HPI narrative: 84-year-old female who has dementia presents to the emergency department from [facility] for chest pain and shortness of breath. She will not answer any questions now. History is obtained mostly from penitentiary report. Reportedly the patient had complaints of chest pain and shortness of breath earlier today and she was transported here by paramedics. 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 No further history is obtainable. Related Data Home Medications ?Medication ?Instructions ?Recorded ?Confirmed alprazolam 0.5 mg tablet 0.5 mg PO .once a day anxiet y 03/21/25 03/21/25 apixaban 5 mg tablet (Eliquis) 5 mg PO Q12H 03/21/25 1 05/22/24 atorvastatin 20 mg tablet 20 mg PO .once a day 5 03/21/25 clopidogrel 75 mg tablet 75 mg PO .once a day 5 03/21/25 ibuprofen 600 mg tablet 600 mg PO Q6H PRN pain 03/2103/21/25 losartan 100 mg tablet 100 mg PO .once a day 03/21/25 multivit with minerals-iron 18 1 tab PO .once a day 03/21/25 mg-folic ac 400 mcg-vit K 25 mcg tablet (One Daily Women's) Allergies Allergy/AdvReac Type Severity Reaction Status Date / Time No Known Drug Allergies Allergy Verified 03/21/25 11:01 Review of Systems ROS Narrative Not obtainable, dementia [facility] Medical History (Updated 03/21/25 @ 13:57 by Parish Lomas MD) Hyperlipidemia ?E78.5 - Hyperlipidemia, unspecified (ICD-10) Hypertension ?I10 - Essential (primary) hypertension (ICD-10) Dementia without behavioral disturbance ?F03.90 - Unspecified dementia, unspecified severity, without behavioral disturbance, psychotic disturbance, mood disturbance, and anxiety (ICD-10) Acute embolism and thrombosis of right femoral vein ?I82.411 - Acute embolism and thrombosis of right femoral vein (ICD-10) Social History (Updated 03/21/25 @ 11:12 by Terri Pat RN) Within the past year, how often did you have a drink containing alcohol: never Score interpretation: A score less than 3 is consistent with normal alcohol consumption. Smoking status: Never smoker Non-prescribed substance use: denies use Exam Narrative Exam Narrative: Nurses note and vital signs reviewed General:The patient appears in no apparent distress. Patient is resting comfortably on cart. Skin:Warm, dry, no pallor noted.There is no rash noted. Head:Normocephalic, atraumatic Eye: Normal conjunctiva, no drainage Ears, Nose, Mouth, and Throat: oral mucosa is moist. Nares patent. Cardiovascular:Regular Rate and Rhythm Respiratory:Patient is in no distress, no accessory muscle use, lungs are clear to auscultation, no wheezing, rales or rhonchi Back:non-tender GI: Soft and nontender Musculoskeletal: No joint swelling Neurological: Will not answer any of my questions Psychiatric: Cannot be assessed Constitutional Vital Signs, click to edit/add: Last Vital Signs Temp 98.8 F 03/21/25 11:01 Pulse 86 03/21/25 12:07 Resp 23 H 03/21/25 12:07 BP 139/68 03/21/25 13:00 Pulse Ox 93 L 03/21/25 11:40 O2 Del Method Room Air 03/21/25 11:01 Course Vital Signs Vital signs: Vital Signs Pulse Oximetry 93 L 03/21/25 11:00 Temperature 98.8 F 03/21/25 11:01 Pulse Rate 86 03/21/25 12:07 Respiratory Rate 23 H 03/21/25 12:07 Blood Pressure 139/68 03/21/25 13:00 Pulse Oximetry 93 L 03/21/25 11:40 Oxygen Delivery Method Room Air 03/21/25 11:01 Medical Decision Making MDM Narrative Medical decision making narrative: The patient presented with shortness of breath. She has dementia and is not a good historian. Chest x-ray is consistent with CHF and she was given 20 mg of IV Lasix and is putting out urine. Initial troponin is negative with second pending. CTA shows no evidence of PE or pneumonia or other acute finding. According to the patient's daughter the patient does not have history of CHF. She is being admitted. Differential Diagnosis Differential Diagnosis: CHF, PE, pneumonia, COVID, influenza Lab Data Lab results reviewed: Yes I reviewed the patient's lab results Labs: Lab Results 03/21/25 Range/Units 11:09 WBC 6.4 (4.0-11.0) 10^3/uL RBC 4.28 (4.20-5.40) 10^6/uL Hgb 12.6 (12.0-16.0) g/dL Hct 40.2 (36.0-48.0) % MCV 93.9 (81.0-99.0) fL MCH 29.4 (26.7-34.0) pg MCHC 31.3 (29.9-35.2) g/dL RDW 13.9 (11.0-15.0) % Plt Count 295 (150-450) 10^3/uL MPV 10.3 (9.5-13.5) fL Neut % (Auto) 67.1 (43.0-75.0) % Lymph % (Auto) 21.6 (20.5-60.0) % [place] % (Auto) 8.2 (1.7-12.0) % Eos % (Auto) 2.2 (0.9-7.0) % Baso % (Auto) 0.6 (0.2-2.0) % Neut # (Auto) 4.3 (1.4-6.5) 10^3/uL Lymph # (Auto) 1.4 (1.2-3.8) 10^3/uL [place] # (Auto) 0.5 (0.3-0.8) 10^3/uL Eos # (Auto) 0.1 (0.0-0.7) 10^3/uL Baso # (Auto) 0.0 (0.0-0.1) 10^3/uL Abs Immat Gran (auto) 0.02 (0.00-0.03) 10^3/uL Imm/Tot Granulo (auto) 0.3 (0.0-0.5) % Sodium 146 H (136-145) mmol/L Potassium 4.0 (3.5-5.1) mmol/L Chloride 109 H (98-107) mmol/L Carbon Dioxide 28.0 (21.0-32.0) mmol/L Anion Gap 13.0 BUN 16.0 (7.0-18.0) mg/dL Creatinine 1.04 H (0.55-1.02) mg/dL Est GFR ( Amer) >60 (>=60 mL/min/1.73m^2) Est GFR (Non-Af Amer) 51 L (>=60 mL/min/1.73m^2) BUN/Creatinine Ratio 15.4 Glucose 130 H (74-106) mg/dL Calcium 9.5 (8.5-10.1) mg/dL Troponin I High Sens 16.0 (4.0-51.3) pg/mL NT-Pro-B Natriuret Pep 233.0 (<=1800.0) pg/mL Imaging Data Chest x-ray: Radiologist's impression: ITS Impressions Chest X-Ray 03/21/25 11:11 IMPRESSION: CHF FINDINGS. NO CONSOLIDATION TO SUGGEST PNEUMONIA. Impression dictated by: Jason Tinsley Jr., D.O. 03/21/2025 12:10 PM Dictation Location: [employer] Electronically authenticated by: [id number] Y Date: 03/21/2025 12:10 Chest CTA 03/21/25 12:41 IMPRESSION: No pulmonary embolism. There is dependent atelectasis with mild cardiomegaly. No focal consolidation, pleural effusion, or pneumothorax. Impression dictated by: Tj Vasquez M.D. 03/21/2025 1:18 PM Dictation Location: [employer] Electronically authenticated by: [id number] Y Date: 03/21/2025 13:18 ECG Data Attestation: I personally reviewed and interpreted this ECG as follows: (EKG on my interpretation shows sinus rhythm with rate of 88 and no acute change) Critical Care Time Critical Care Time Critical Care Time: Yes Total Critical Care Time: 35 Attestation: Due to the high probability of sudden and clinically significant deterioration in the patient's condition he/she required the highest level of my preparedness to intervene urgently I provided critical care time including documentation time, medication orders and management, reevaluation, vital sign assessment, ordering and reviewing of lab tests, ordering and reviewing of x-ray studies, and admission orders. Aggregate critical care time is 35 minutes including only time during which I was engaged in work directly related to his/her care and did not include time spent treating other patients simultaneously. Discharge Plan Discharge Chief Complaint: Shortness of Breath/Dyspnea Clinical Impression: Congestive heart failure Patient Disposition: Admitted as Observation Time of Disposition Decision: 13:57 Condition: Fair
[2025-03-21 11:29] LABS: Hematocrit 40.2 % (36.0-48.0); Hemoglobin 12.6 g/dL (12.0-16.0); Immature Granulocytes Abs Auto 0.02 10^3/uL (0.00-0.03); Immature Granulocytes Pct Auto 0.3 % (0.0-0.5); Lymphocytes Absolute Auto 1.4 10^3/uL (1.2-3.8); Mean Corpuscular HGB Conc 31.3 g/dL (29.9-35.2); Mean Corpuscular Hemoglobin 29.4 pg (26.7-34.0); Mean Corpuscular Volume 93.9 fL (81.0-99.0); Platelet Count 295 10^3/uL (150-450); Red Blood Count 4.28 10^6/uL (4.20-5.40); White Blood Count 6.4 10^3/uL (4.0-11.0)
[2025-03-21 11:54] LABS: Anion Gap 13.0; Blood Urea Nitrogen 16.0 mg/dL (7.0-18.0); Calcium 9.5 mg/dL (8.5-10.1); Carbon Dioxide 28.0 mmol/L (21.0-32.0); Chloride 109 mmol/L (98-107); Estimated GFR (African America >60 (>=60 mL/min/1.73m^2); Estimated GFR (Non-African Ame 51 (>=60 mL/min/1.73m^2); Glucose 130 mg/dL (74-106); NT Pro B Type Natriuretic Pept 233.0 pg/mL (<=1800.0); Potassium 4.0 mmol/L (3.5-5.1); Sodium 146 mmol/L (136-145)
--- NOTE | 2025-03-21 12:41 | CT_ITS ---
[address] [address] Patient Name: WILMA STALLINGS MRN: [id number] date: 1940 Sex: F Assigned Patient Location: ER Current Patient Location: Accession/Order Number: [id number] Exam Date: 03/21/2025 12:50 Report Date: 03/21/2025 13:18 At the request of: DOMENICO LUIS MD Procedure: CT angio chest CT angio chest 03/21/2025 12:55 PM SIGN AND SYMPTOMS: ^Short of breath, weakness CONTRAST: 100 mL of intravenous and 350 TECHNIQUE: Multidetector CT axial slices of the chest were obtained with IV contrast. Multiplanar reformats were performed and viewed on a separate workstation and reviewed to further define anatomy and possible pathology. CT was performed with one or more of the following dose reduction techniques: Automated exposure control, adjustment of the mA and/or kV according to patient size, or use of iterative reconstruction technique. COMPARISON: None. FINDINGS: Lower neck: Thyroid gland within normal limits, no supraclavicle adenopathy. Vessels: Atherosclerotic changes are noted in the thoracic aorta, coronary arteries, and origins of the great vessels. There is no evidence of pulmonary embolism. Mediastinum and [place]: Within normal limits. Heart: There is mild cardiomegaly No pericardial effusion. Airways: Within normal limits Lungs: There is dependent atelectasis. Mild emphysematous changes are noted. Pleura: Within normal limits. Chest Wall: Within normal limits. Upper Abdomen: Within normal limits. Bones: Degenerative changes are noted in the thoracic spine. CT/CT angio chest IMPRESSION: No pulmonary embolism. There is dependent atelectasis with mild cardiomegaly. No focal consolidation, pleural effusion, or pneumothorax. Impression dictated by: Tj Vasquez M.D. 03/21/2025 1:18 PM Dictation Location: [place] [address] Electronically authenticated by: [id number] Y Date: 03/21/2025 13:18
[2025-03-21] MEDS: FUROSEMIDE 20 MG/2 ML VIAL IVP (13:00)
--- NOTE | 2025-03-21 15:21 | SWNOTE1 ---
SW attempted to call pt's daughter, Iris, 3 x, but phone rang once and went to voicemail. JAMMIE left voicemail and requested Iris call SW back.
[2025-03-21 15:27] LABS: SARS-CoV-2 Ag NEGATIVE (NEGATIVE)
--- NOTE | 2025-03-21 15:36 | SWNOTE1 ---
Pt's daughter Iris called back. Pt has been at [facility] since middle of December. Pt has been using a walker since last month. [facility] assists her with medication. Daughter stated pt has had a decline and her Dementia has become worse. She stated pt has been very tired today. Unsure of the discharge plan. Daughter is on her way here. Daughter was asking several medical questions about labs, and fluid and diagnostic imaging results. JAMMIE advised that nurse or physician will review with her once results are in. She voiced understanding. JAMMIE or RADHA to complete OBRIEN form with daughter once she arrives.
--- NOTE | 2025-03-21 16:00 | SWNOTE1 ---
Medicare Outpatient Observation Notice reviewed and discussed with patient's daughter, Iris. Iris verbalized understanding and signed the form. Original given to Iris and copy placed in patient?s chart.
[2025-03-21] MEDS: ATORVASTATIN CALCIUM 20 MG TABLET PO (21:24)
[2025-03-21] MEDS: APIXABAN 5 MG TABLET PO (21:24)
--- NOTE | 2025-03-21 21:50 | PC.NURSE ---
small drop of urine, not enough to measure
[2025-03-22] VITALS (25 sets, daily range): BP systolic 98–125; BP diastolic 55–71; PULSE 72–115; TEMP 36.6–37.1; O2SAT 90–92
--- NOTE | 2025-03-22 05:55 | PC.NURSE ---
Iv to left antecubital pulled out per patient. Iv restart attempt x's 3 all without success. One to Right wrist, one to right arm and one to left wrist. All 22guage catheters. All 3 times blood return observed, as catheters advanced vein puff up. CMason Rn [place] into attempt.
[2025-03-22 06:51] LABS: Hematocrit 39.4 % (36.0-48.0); Hemoglobin 12.6 g/dL (12.0-16.0); Immature Granulocytes Abs Auto 0.02 10^3/uL (0.00-0.03); Immature Granulocytes Pct Auto 0.3 % (0.0-0.5); Lymphocytes Absolute Auto 2.2 10^3/uL (1.2-3.8); Mean Corpuscular HGB Conc 32.0 g/dL (29.9-35.2); Mean Corpuscular Hemoglobin 29.4 pg (26.7-34.0); Mean Corpuscular Volume 91.8 fL (81.0-99.0); Platelet Count 319 10^3/uL (150-450); Red Blood Count 4.29 10^6/uL (4.20-5.40); White Blood Count 7.6 10^3/uL (4.0-11.0)
[2025-03-22 07:03] LABS: Anion Gap 11.1; Blood Urea Nitrogen 20.0 mg/dL (7.0-18.0); Calcium 9.1 mg/dL (8.5-10.1); Carbon Dioxide 30.5 mmol/L (21.0-32.0); Chloride 109 mmol/L (98-107); Cholesterol 114 mg/dL (<=200); Estimated GFR (African America 56 (>=60 mL/min/1.73m^2); Estimated GFR (Non-African Ame 47 (>=60 mL/min/1.73m^2); Glucose 104 mg/dL (74-106); HDL Cholesterol 45 mg/dL (40-60); Magnesium 2.1 mg/dL (1.8-2.4); Potassium 3.6 mmol/L (3.5-5.1); Sodium 147 mmol/L (136-145); Triglycerides 72 mg/dL (<=150); VLDL CHOLESTEROL 14.4 mg/dL
[2025-03-22 07:40] LABS: Alanine Aminotransferase 19 U/L (14-59); Albumin Globulin Ratio 0.9; Albumin Level 3.3 g/dL (3.4-5.0); Alkaline Phosphatase 74 U/L (46-116); Aspartate Amino Transferase 14 U/L (15-37); Globulin 3.6 g/dL; Total Protein 6.9 g/dL (6.4-8.2)
--- NOTE | 2025-03-22 08:00 | ECG_ITS ---
[facility] Test Date: 2025-03-22 Pat Name: WILMA STALLINGS Department: Room: [facility] Gender: Female Hose Finisher: : 1940 Requested By: [id number] Order Number: [id number] Reading MD: CARLEEN BRADY M.D. Measurements Intervals [place] Rate: 85 P: LA: QRS: 26 QRSD: 77 T: 73 QT: 368 QTc: 440 Interpretive Statements SINUS RHYTHM SINUS ARRHYTHMIA Normal ECG Compared to ECG 03/21/2025 11:03:19 No significant changes Electronically Signed On 03-23-2025 7:24:51 EST by CARLEEN BRADY M.D.
[2025-03-22] MEDS: APIXABAN 5 MG TABLET PO ×2 (09:30→21:20)
[2025-03-22] MEDS: LOSARTAN POTASSIUM 50 MG TABLET PO (09:30)
[2025-03-22] MEDS: DEXTROSE 5 % IN WATER 1,000 ML 70 ML IV (09:30)
[2025-03-22] MEDS: CLOPIDOGREL BISULFATE 75 MG TABLET PO (09:30)
[2025-03-22] MEDS: ALPRAZOLAM 0.5 MG TABLET PO (09:30)
[2025-03-22] MEDS: DOXYCYCLINE HYCLATE 100 MG in 0.9 % SODIUM CHLORIDE 100 ML IV (10:15)
--- NOTE | 2025-03-22 10:39 | PM.HP ---
HPI H&P: HPI History of Present Illness Chief complaint: CHEST PAIN, SOB, WEAKNESS, CHF Narrative: Mrs. Vargas is a 84-year-old female who was sent to the emergency room from the care home with a complaint of chest discomfort, shortness of breath. Patient reported to me that she feels out of breath even at rest. Denies any cough. No chest pain. No fever or chills. Patient smoked for 20 years in the past. She quit many years ago. No abdominal pain, nausea or vomiting. Opioid HPI Opioid Management Most Recent Pain and Opioid Data: Last Pain Assessment Today, 09:50 Review of Systems ROS Status of ROS 10 or more systems reviewed and unremarkable except as noted in history and below [facility] Medical History (Updated 03/22/25 @ 10:42 by Jenelle Guillaume MD) Hyperlipidemia ?E78.5 - Hyperlipidemia, unspecified (ICD-10) Hypertension ?I10 - Essential (primary) hypertension (ICD-10) Dementia without behavioral disturbance ?F03.90 - Unspecified dementia, unspecified severity, without behavioral disturbance, psychotic disturbance, mood disturbance, and anxiety (ICD-10) Acute embolism and thrombosis of right femoral vein ?I82.411 - Acute embolism and thrombosis of right femoral vein (ICD-10) Social History (Updated 03/21/25 @ 11:12 by Terri Pat RN) Within the past year, how often did you have a drink containing alcohol: never Score interpretation: A score less than 3 is consistent with normal alcohol consumption. Smoking status: Never smoker Non-prescribed substance use: denies use Meds Home Medications and Allergies Home Medications ?Medication ?Instructions ?Recorded ?Confirmed ?Type alprazolam 0.5 mg tablet 0.5 mg PO .once a day anxiety 03/21/25 03/21/25 History apixaban 5 mg tablet (Eliquis) 5 mg PO Q12H 03/21/25 03/21/25 History atorvastatin 20 mg tablet 20 mg PO .once a day 03/21/25 03/21/25 History clopidogrel 75 mg tablet 75 mg PO .once a day 03/21/25 03/21/25 History ibuprofen 600 mg tablet 600 mg PO Q6H PRN pain 03/21/25 03/21/25 History losartan 100 mg tablet 100 mg PO .once a day 03/21/25 03/21/25 History multivit with minerals-iron 18 1 tab PO .once a day 03/21/25 03/21/25 History mg-folic ac 400 mcg-vit K 25 mcg tablet (One Daily Women's) Allergies Allergy/AdvReac Type Severity Reaction Status Date / Time No Known Drug Allergies Allergy Verified 03/21/25 11:01 Exam Narrative Exam Narrative: [pt is awake and alert. oriented to place, time and person. Patient is mildly tachypneic. HEENT: [place] conjunctiva and NL buccal mucosa Neck: Supple, no tenderness Endocrine: No Thyromegaly. Vascular: No JVD or carotid bruit. Lymphatic: No cervical lymphadenopathy. Chest: Basilar rhonchi, definitely on the left side at the base Heart RRR, no extra sound or murmur. Abd: Soft, no tenderness, no rebound and no rigidity. Increase abd girth therefore clinically I could not exclude the possibility of intra abd mass or organomegaly. LE: No cyanosis or clubbing, no varices or edema. No edema Neuro: Awake and alert. Able to answer questions. Able to engage in simple conversation. Unable to provide details. []] Constitutional Vital Signs, click to edit/add: Last Vital Signs Temp 98.6 F 03/22/25 08:00 Pulse 91 H 03/22/25 10:15 Resp 20 03/22/25 08:00 BP 119/64 03/22/25 08:00 Pulse Ox 90 L 03/22/25 08:00 O2 Del Method Room Air 03/22/25 08:00 Results Labs Labs: Short CBC 03/21/25 03/22/25 Range/Units 11:09 05:31 WBC 6.4 7.6 (4.0-11.0) 10^3/uL Hgb 12.6 12.6 (12.0-16.0) g/dL Hct 40.2 39.4 (36.0-48.0) % Plt Count 295 319 (150-450) 10^3/uL BMP 03/21/25 03/22/25 11:09 05:31 Sodium 146 H 147 H Potassium 4.0 3.6 Chloride 109 H 109 H Carbon Dioxide 28.0 30.5 BUN 16.0 20.0 H Creatinine 1.04 H 1.12 H Glucose 130 H 104 Calcium 9.5 9.1 Liver Function 03/22/25 Range/Units 05:31 Total Bilirubin 0.5 (0.2-1.0) mg/dL Direct Bilirubin 0.1 (0.0-0.2) mg/dL AST 14 L (15-37) U/L ALT 19 (14-59) U/L Alkaline Phosphatase 74 (46-116) U/L Albumin 3.3 L (3.4-5.0) g/dL Assessment and Plan Assessment and Plan (1) Dyspnea: Plan Hypoxic respiratory failure. Patient is mildly tachypneic and saturation 90% on room air. Her BNP is not elevated. Patient does not have JVD or lower extremities edema. Patient was given Lasix in the emergency room department. Today her kidney function is worse so it is her sodium level. I am not impressed that the patient has CHF. On exam, the patient does have left base rhonchi. CTA does not show any pulmonary embolism. No other significant abnormalities reported by radiologist other than basilar atelectasis I reviewed the CAT scan imaging myself and I can see basilar parenchymal changes which could indicate early infiltration. I requested influenza, RSV and SARS and all came back negative I started patient on intravenous Doxy and ceftriaxone suspecting development of basilar pneumonia. She may have aspiration pneumonia. Requested swallow evaluation. In addition, patient smoked for 20 years in the past. She quit many years ago. She may have underlying obstructive lung disease. She may have an element of COPD, probable mild bronchospasm. I started patient on albuterol, Atrovent and Solu-Medrol. Her troponin is negative twice. No clinical evidence of ACS I requested echo to see if patient has any pulmonary hypertension or cardiomyopathy. I would have ordered procalcitonin level to confirm that the patient has infectious process but not available here and may take several days to come back making it irrelevant at this time. Hypernatremia. Likely indicative of water deficit Mild SCOTTY, worse after given Lasix in the emergency room department I started patient on D5 water, 1 L. Monitor sodium level. History of DVT on Eliquis Hypertension blood pressure is on the low side. Could again indicated volume loss Reduced her losartan dose significantly Chronic, subacute medical conditions not listed above, abnormal labs and imaging, incidental findings seen on labs and or imaging. These would need to be addressed. Could be addressed later on or in the outpatient setting by PCP collaboration with other needed outpatient providers when time and condition are appropriate. Patient status is dynamic and evolutionary therefore the aforementioned assessment and plan may or may not be complete or conclusive. The patient would likely require to have additional workup, vesication of therapeutic intervention that will be determined based on the clinical progression and follow-up test result.
[2025-03-22] MEDS: DEXAMETHASONE SOD PHOS 10 MG/ML VIAL INJ (11:07)
[2025-03-22] MEDS: LOSARTAN POTASSIUM 50 MG TABLET 25 MG PO (11:07)
[2025-03-22] MEDS: IPRATROPIUM/ALBUTEROL SULFATE 3 ML AMPUL.NEB IH ×2 (11:11→20:45)
--- NOTE | 2025-03-22 11:36 | W.ACP ---
Advance Care Planning Advance Care Planning Discussion Advance care planning discussion participants: patient, patient surrogate decision maker and legally authorized Health Care Proxy Advance care planning discussion summary: Advance care planning and goals of care discussion. Patient is unable to engage in such conversation secondary to her dementia. Her 2 daughters are in the room. Kimberlee is the POA. Both gave me permission to proceed with conversation that lasted for about 25 minutes. I gave them report on her condition, status and treatment plan. Contrary to what patient had told me, she smoked her entire life and quit 2 years ago. Given the new information provided I do suspect that the patient has underlying COPD contributing to her shortness of breath We discussed her CODE STATUS. Sheldon stated that Janis does not have CODE STATUS defined yet I explained in simple terms the difference between full code, CCA and CC. I explained in layman's terms of the process of CPR including chest compressions, shocks, intubation and life support. Conversation went [id number] asking and answering questions Both daughters stated in basic terms that they do not want their mom to undergo any resuscitative effort in case of a cardiac or respiratory arrest. Both elected DNR CCA as per official CODE STATUS. No intubation, no CPR, no chest compressions, no life support
[2025-03-22] MEDS: DEXAMETHASONE SOD PHOS 4 MG/ML VIAL INJ (17:11)
[2025-03-22] MEDS: DOXYCYCLINE MONOHYDRATE 100 MG CAPSULE PO (21:20)
[2025-03-22] MEDS: ATORVASTATIN CALCIUM 20 MG TABLET PO (21:20)
[2025-03-23] VITALS (13 sets, daily range): BP systolic 113–156; BP diastolic 66–71; PULSE 92–114; TEMP 36.7–37.1; O2SAT 90–96
[2025-03-23] MEDS: DEXAMETHASONE SOD PHOS 4 MG/ML VIAL INJ (01:20)
[2025-03-23 07:13] LABS: Anion Gap 17.9; Blood Urea Nitrogen 22.0 mg/dL (7.0-18.0); Calcium 9.4 mg/dL (8.5-10.1); Carbon Dioxide 23.4 mmol/L (21.0-32.0); Chloride 106 mmol/L (98-107); Estimated GFR (African America 57 (>=60 mL/min/1.73m^2); Estimated GFR (Non-African Ame 47 (>=60 mL/min/1.73m^2); Glucose 163 mg/dL (74-106); Potassium 4.3 mmol/L (3.5-5.1); Sodium 143 mmol/L (136-145)
--- NOTE | 2025-03-23 08:50 | XR_ITS ---
[address] [address] Patient Name: WILMA STALLINGS MRN: [id number] date: 1940 Sex: F Assigned Patient Location: [place] Current Patient Location: [place] Accession/Order Number: [id number] Exam Date: 03/23/2025 09:55 Report Date: 03/23/2025 10:41 At the request of: JUNE ROCK MD Procedure: XR chest 2V PA AND LATERAL CHEST: CLINICAL HISTORY: Left base pneumonia COMPARISON: 03/21/2025 FINDINGS: Mildly enlarged cardiomediastinal silhouette. No effusion or pneumothorax. Left upper lateral chest opacity may represent focal nodular scarring versus focal airspace disease. Otherwise, Lungs are clear. XR/XR chest 2V IMPRESSION: LEFT UPPER LUNG OPACITY COULD SUGGEST DEVELOPING AIRSPACE DISEASE. Impression dictated by: Rai Grover M.D. 03/23/2025 10:41 AM Dictation Location: [place] [address] Electronically authenticated by: [id number] Y Date: 03/23/2025 10:41
--- NOTE | 2025-03-23 08:53 | PM.PN ---
Progress Note: Subjective Subjective Interval history: Patient became restless overnight and was ripping off her telemetry. Less cough and congestion. Less shortness of breath. Exam Narrative Exam Narrative: [pt is awake and alert. oriented to place, time and person. Patient is mildly tachypneic. HEENT: [place] conjunctiva and NL buccal mucosa Neck: Supple, no tenderness Endocrine: No Thyromegaly. Vascular: No JVD or carotid bruit. Lymphatic: No cervical lymphadenopathy. Chest: There is definite resolution of the basilar rhonchi, definitely on the left side at the base Heart RRR, no extra sound or murmur. Abd: Soft, no tenderness, no rebound and no rigidity. Increase abd girth therefore clinically I could not exclude the possibility of intra abd mass or organomegaly. LE: No cyanosis or clubbing, no varices or edema. No edema Neuro: Awake and alert. Able to answer questions. Able to engage in simple conversation. Unable to provide details. []] Constitutional Vital Signs, click to edit/add: Last Vital Signs Temp 98.4 F 03/23/25 07:29 Pulse 100 H 03/23/25 07:29 Resp 20 03/23/25 07:29 BP 113/66 03/23/25 07:29 Pulse Ox 90 L 03/23/25 07:29 O2 Del Method Room Air 03/23/25 07:29 Progress Note: Objective Labs Labs: [facility] 03/23/25 05:37 Sodium 143 Potassium 4.3 Chloride 106 Carbon Dioxide 23.4 BUN 22.0 H Creatinine 1.11 H Glucose 163 H Calcium 9.4 Progress Note: A&P Assessment and Plan (1) Dyspnea: Plan Hypoxic respiratory failure. Patient is mildly tachypneic and saturation 90% on room air. Bilateral, bibasilar pneumonia more so on the left side as per auscultation. COPD with exacerbation. Her BNP is not elevated. Patient does not have JVD or lower extremities edema. Patient was given Lasix in the emergency room department. I am not impressed that the patient has CHF. On exam, the patient does have left base rhonchi. CTA does not show any pulmonary embolism. No other significant abnormalities reported by radiologist other than basilar atelectasis I reviewed the CAT scan imaging myself and I can see basilar parenchymal changes which could indicate early infiltration. I requested influenza, RSV and SARS and all came back negative In addition, patient smoked for 20 years in the past as per patient.(Her 2 daughters told me that the patient smoked for more than 50 years in her life and quit only a few years ago) She likely has underlying COPD and an element of bronchospasm and COPD exacerbation Started and continue albuterol, Atrovent and Solu-Medrol. Started in the continue patient on ceftriaxone and doxycycline Her troponin is negative twice. No clinical evidence of ACS I requested echo to see if patient has any pulmonary hypertension or cardiomyopathy. I would have ordered procalcitonin level to confirm that the patient has infectious process but not available here and may take several days to come back making it irrelevant at this time. Hypernatremia. Likely indicative of water deficit Mild SCOTTY, worse after given Lasix in the emergency room department I started patient on D5 water, 1 L. Sodium level had improved after infusion of hypotonic fluid. History of DVT on Eliquis Hypertension blood pressure is on the low side. Could again indicated volume loss Reduced her losartan dose significantly Dementia with noticeable cognitive and functional loss Chronic, subacute medical conditions not listed above, abnormal labs and imaging, incidental findings seen on labs and or imaging. These would need to be addressed. Could be addressed later on or in the outpatient setting by PCP collaboration with other needed outpatient providers when time and condition are appropriate. Goals of care discussion took place on 03/22. Patient is DNR CCA.
[2025-03-23] MEDS: DOXYCYCLINE MONOHYDRATE 100 MG CAPSULE PO ×2 (09:12→21:13)
[2025-03-23] MEDS: CLOPIDOGREL BISULFATE 75 MG TABLET PO (09:13)
[2025-03-23] MEDS: LOSARTAN POTASSIUM 50 MG TABLET 25 MG PO (09:13)
[2025-03-23] MEDS: METHYLPREDNISOLONE SOD SUCC PF 40 MG/ML VIAL IVP ×2 (09:13→21:13)
[2025-03-23] MEDS: APIXABAN 5 MG TABLET PO ×2 (09:13→21:12)
[2025-03-23] MEDS: ALPRAZOLAM 0.5 MG TABLET PO (09:13)
[2025-03-23] MEDS: IPRATROPIUM/ALBUTEROL SULFATE 3 ML AMPUL.NEB IH ×2 (09:16→20:08)
[2025-03-23] MEDS: ATORVASTATIN CALCIUM 20 MG TABLET PO (21:12)
[2025-03-24] VITALS (8 sets, daily range): BP systolic 123–175; BP diastolic 68–80; PULSE 93–102; TEMP 36.5–37; O2SAT 90–98
[2025-03-24] MEDS: IPRATROPIUM/ALBUTEROL SULFATE 3 ML AMPUL.NEB IH ×2 (08:27→20:56)
[2025-03-24] MEDS: ALPRAZOLAM 0.5 MG TABLET PO (08:58)
[2025-03-24] MEDS: LOSARTAN POTASSIUM 50 MG TABLET 25 MG PO (08:58)
[2025-03-24] MEDS: DOXYCYCLINE MONOHYDRATE 100 MG CAPSULE PO ×2 (08:58→21:41)
[2025-03-24] MEDS: APIXABAN 5 MG TABLET PO ×2 (08:58→21:41)
[2025-03-24] MEDS: CLOPIDOGREL BISULFATE 75 MG TABLET PO (08:58)
[2025-03-24] MEDS: METHYLPREDNISOLONE SOD SUCC PF 40 MG/ML VIAL IVP ×2 (08:59→21:41)
--- NOTE | 2025-03-24 09:00 | CM.NOTE ---
Rounds made with Dr. Ortiz, discussed plan of care with pt. Pt very tearful and confused to time and place, pt verbalizes I'm not supposed to be here. Support provided, no discharge today. PT and OT will evaluate pt for discharge planning. CM or SW will contact pt's daughter for further discharge planning.
[2025-03-24 09:29] LABS: Hematocrit 42.3 % (36.0-48.0); Hemoglobin 13.9 g/dL (12.0-16.0); Immature Granulocytes Abs Auto 0.07 10^3/uL (0.00-0.03); Immature Granulocytes Pct Auto 0.4 % (0.0-0.5); Lymphocytes Absolute Auto 1.8 10^3/uL (1.2-3.8); Mean Corpuscular HGB Conc 32.9 g/dL (29.9-35.2); Mean Corpuscular Hemoglobin 29.8 pg (26.7-34.0); Mean Corpuscular Volume 90.8 fL (81.0-99.0); Platelet Count 385 10^3/uL (150-450); Red Blood Count 4.66 10^6/uL (4.20-5.40); White Blood Count 16.2 10^3/uL (4.0-11.0)
--- NOTE | 2025-03-24 09:37 | SWNOTE1 ---
JAMMIE faxed updated to Carol at [facility] since pt is from their facility. JAMMIE let Carol know that we ordered PT/OT for pt to have done here as well.
[2025-03-24 09:54] LABS: Alanine Aminotransferase 24 U/L (14-59); Albumin Globulin Ratio 1.0; Albumin Level 3.6 g/dL (3.4-5.0); Alkaline Phosphatase 76 U/L (46-116); Anion Gap 15.7; Aspartate Amino Transferase 17 U/L (15-37); Blood Urea Nitrogen 31.0 mg/dL (7.0-18.0); Calcium 9.0 mg/dL (8.5-10.1); Carbon Dioxide 25.6 mmol/L (21.0-32.0); Chloride 108 mmol/L (98-107); Estimated GFR (African America 48 (>=60 mL/min/1.73m^2); Estimated GFR (Non-African Ame 39 (>=60 mL/min/1.73m^2); Globulin 3.7 g/dL; Glucose 133 mg/dL (74-106); Potassium 4.3 mmol/L (3.5-5.1); Sodium 145 mmol/L (136-145); Total Protein 7.3 g/dL (6.4-8.2)
--- NOTE | 2025-03-24 10:31 | PM.IMPN1 ---
Progress Note: A&P Assessment and Plan (1) Dyspnea: Assessment and Plan: Hypoxic respiratory failure. Patient is mildly tachypneic and saturation 90% on room air. Bilateral, bibasilar pneumonia more so on the left side as per auscultation. COPD with exacerbation. Her BNP is not elevated. Patient does not have JVD or lower extremities edema. Patient was given Lasix in the emergency room department. I am not impressed that the patient has CHF. On exam, the patient does have left base rhonchi. CTA does not show any pulmonary embolism. No other significant abnormalities reported by radiologist other than basilar atelectasis I reviewed the CAT scan imaging myself and I can see basilar parenchymal changes which could indicate early infiltration. I requested influenza, RSV and SARS and all came back negative In addition, patient smoked for 20 years in the past as per patient.(Her 2 daughters told me that the patient smoked for more than 50 years in her life and quit only a few years ago) She likely has underlying COPD and an element of bronchospasm and COPD exacerbation Started and continue albuterol, Atrovent and Solu-Medrol. Started in the continue patient on ceftriaxone and doxycycline Her troponin is negative twice. No clinical evidence of ACS I requested echo to see if patient has any pulmonary hypertension or cardiomyopathy. I would have ordered procalcitonin level to confirm that the patient has infectious process but not available here and may take several days to come back making it irrelevant at this time. Hypernatremia. Likely indicative of water deficit Mild SCOTTY, worse after given Lasix in the emergency room department I started patient on D5 water, 1 L. Sodium level had improved after infusion of hypotonic fluid. History of DVT on Eliquis Hypertension blood pressure is on the low side. Could again indicated volume loss Reduced her losartan dose significantly Dementia with noticeable cognitive and functional loss Chronic, subacute medical conditions not listed above, abnormal labs and imaging, incidental findings seen on labs and or imaging. These would need to be addressed. Could be addressed later on or in the outpatient setting by PCP collaboration with other needed outpatient providers when time and condition are appropriate. Goals of care discussion took place on 03/22. Patient is DNR CCA. 03/24/2025 I am continuing the patient's IV ceftriaxone 1 g every 12 hours as well as her doxycycline 100 mg p.o. twice daily. Also I am continuing the patient's DuoNeb twice daily as well as her methylprednisolone 40 mg IV every 12 hours with this plan to switch her to p.o. prednisone tomorrow. If the patient continues to improve by tomorrow I will discharge her. Her echo is pending. Internal Medicine - PN: Subj Subjective Interval history: Patient seen and examined at bedside. She is at baseline mental status. Emotional and tearful wants to be discharged. Cooperative on exam though. On further medication review, patient did receive 1 dose of IV Lasix 20 mg once on 03/21/2025. Exam Narrative Exam Narrative: [pt is awake and alert. Sitting up in bed. Oriented to place, and person not to time. She is at baseline mental status HEENT: [place] conjunctiva and NL buccal mucosa Neck: Supple, no tenderness Endocrine: No Thyromegaly. Vascular: No JVD or carotid bruit. Lymphatic: No cervical lymphadenopathy. Chest: There are still expiratory wheezes, no rhonchi. Decreased bilateral air entry. Patient saturating well on room air 98%. She does not show symptoms of respiratory distress Heart RRR, no extra sound or murmur. Abd: Soft, no tenderness, no rebound and no rigidity. No signs of acute abdomen. LE: No cyanosis or clubbing, no varices or edema. No edema Neuro: Awake and alert. Able to answer questions. Able to engage in simple conversation. Unable to provide details Constitutional Vital Signs, click to edit/add: Last Vital Signs Temp 97.7 F 03/24/25 07:41 Pulse 95 H 03/24/25 08:30 Resp 20 03/24/25 08:30 BP 175/80 H 03/24/25 07:41 Pulse Ox 98 03/24/25 08:30 O2 Del Method Room Air 03/24/25 08:30 Internal Medicine - PN: Obj Da Labs Labs: Laboratory Results - last 24 hr 03/24/25 09:19 WBC 16.2 H RBC 4.66 Hgb 13.9 Hct 42.3 MCV 90.8 MCH 29.8 MCHC 32.9 RDW 14.1 Plt Count 385 MPV 9.9 Neut % (Auto) 84.0 H Lymph % (Auto) 11.3 L [place] % (Auto) 4.2 Eos % (Auto) 0.0 L Baso % (Auto) 0.1 L Neut # (Auto) 13.6 H Lymph # (Auto) 1.8 [place] # (Auto) 0.7 Eos # (Auto) 0.0 Baso # (Auto) 0.0 Abs Immat Gran (auto) 0.07 H Imm/Tot Granulo (auto) 0.4 Sodium 145 Potassium 4.3 Chloride 108 H Carbon Dioxide 25.6 Anion Gap 15.7 BUN 31.0 H Creatinine 1.30 H Est GFR ( Amer) 48 L Est GFR (Non-Af Amer) 39 L BUN/Creatinine Ratio 23.8 Glucose 133 H Calcium 9.0 Total Bilirubin 0.3 AST 17 ALT 24 Alkaline Phosphatase 76 Total Protein 7.3 Albumin 3.6 Globulin 3.7 Albumin/Globulin Ratio 1.0
--- NOTE | 2025-03-24 10:37 | CA_ITS ---
Patient Name: WILMA STALLINGS MR#: [id number] : 1940 Exam Date: 03/24/2025 Ordering Doctor: JUNE ROCK ECHOCARDIOGRAM REPORT PROCEDURE: CA ECHO DOPPLER COMPLETE INDICATIONS: Assess function, valves and pulm pressure COMPARISON: None. DESCRIPTION: COMPLETE ECHOCARDIOGRAM Real-time transthoracic echocardiography with 2D, M-mode, spectral and color flow Doppler performed. QUALITY: Technical quality was adequate. LEFT VENTRICLE: Normal chamber size. Significantly thickened septal wall on top of moderate left ventricular concentric hypertrophy. Global left ventricular systolic function is normal. No wall motion abnormalities. Visual estimation of left ventricular ejection fraction is 65-70%. LV EF: Normal left ventricular ejection fraction, (>55%). DIASTOLIC: Grade I diastolic dysfunction. ATRIAL SEPTUM: Visually appears intact LEFT ATRIUM: Mild dilatation. RIGHT ATRIUM: Mild dilatation. RIGHT VENTRICLE: Normal chamber size. Normal right ventricular systolic function. TRICUSPID VALVE: Normal mobility and thickness. No stenosis with mild regurgitation. No evidence of pulmonary hypertension.The RVSP measures 31mmHg. MITRAL VALVE: Normal mobility and thickness. No evidence of mitral valve stenosis. There is no mitral annular calcification. Trivial mitral regurgitation. AORTIC VALVE: Normal trileaflet appearance. Mildly calcified aortic valve. Normal leaflet mobility. No evidence of aortic valve stenosis. No aortic regurgitation. AORTIC ROOT: Normal diameter and appearance. The aortic root measures 3.2cm. PULMONIC VALVE: Normal thickness and mobility. No stenosis. No regurgitation. PERICARDIUM: Anterior pericardial free space, appears to represent fat pad IVC: Collapes with inspirations. The IVC is normal in size measuring 1.8cm. PLEURA: CONCLUSION: Significant asymmetric septal hypertrophy on top of concentric left ventricle hypertrophy, no evidence of LVOT obstruction Normal left ventricle systolic function without wall motion abnormalities, ejection fraction 65 to 70% Grade 1 left ventricular diastolic dysfunction Normal right ventricle size and systolic function Normal right-sided pressure, RVSP 31 mmHg Mild biatrial dilatation Mild tricuspid regurgitation Adult Echocardiography Procedure Report Left Ventricle LVEDD (3.7 - 5.6 cm): 3.91 cm LVESD (2.2 - 4.0 cm): 2.72 cm LVIVS thickness (0.6 - 1.2 cm): 1.87 cm LVPW thickness (0.5 - 1.0 cm): 1.51 cm e': 0.08 m/s E - e': 6.69 LVOT Max Gradient: 4.03 mm[Hg] LVOT Area (cm2): 1.00 m/s Peak Velocity (LVOT): 1.00 m/s Mean Velocity (LVOT): 0.72 m/s LVOT Diameter 2.03 cm Left Ventricular Ejection Fraction: 71.19 % Left Atrium LA Volume Index (2D A2C): 37.55 ml/m2 Left Atrium Systolic Dimension: 4.51 cm Mitral Valve MV E to A Ratio: 0.56, 0.57 MV Max Gradient: MV Mean Gradient: Mitral Valve A-Wave Peak Velocity: 0.97 m/s Mitral Valve E-Wave Peak Velocity: 0.55 m/s Cardiovascular Orifice Area: Right Ventricle RV Internal Diastolic Dimension: 3.39 cm Aorta AO Root Diam: 3.21 cm Ascending Ao Diam: 3.04 cm Aortic Valve AoV Area (Peak Olegario): 2.60 cm2, 2.42 cm2 AoV Area (VTI): 2.43 cm2, 2.37 cm2 Deceleration [place]: Pressure Half-Time: Peak Velocity(Antegrade Flow): 1.34 m/s, 1.15 m/s Peak Gradient(Antegrade Flow): 7.18 mm[Hg], 5.31 mm[Hg] Mean Velocity(Antegrade Flow): 0.87 m/s, 0.80 m/s Mean Gradient(Antegrade Flow): 3.53 mm[Hg], 2.91 mm[Hg] Velocity Time Integral: 25.10 cm, 23.90 cm Tricuspid Valve Peak Velocity (Regurgitant Flow): 1.84 m/s, 2.64 m/s, 2.67 m/s Peak Velocity: Pulmonic Valve Mean Gradient: 1.56 mm[Hg] Mean Velocity: 0.59 m/s Peak Velocity: 0.92 m/s, 1.01 m/s Peak Gradient: 4.07 mm[Hg], 3.41 mm[Hg] Right Atrium Right Atrium Systolic Pressure: 50.15 ml, 50.15 ml Dictated by: Roya Pleitez MD on 03/24/2025 at 17:18 Approved by: Roya Pleitez MD on 03/24/2025 at 17:26
--- NOTE | 2025-03-24 11:22 | SWNOTE1 ---
SW called pt's daughter, Iris. She was at an appointment and will be heading here from [place]. She stated she will be here in about 30 mins. SW to speak with daughter once she arrives.
[2025-03-24] MEDS: PANTOPRAZOLE SODIUM 40 MG TABLET.DR PO (11:24)
--- NOTE | 2025-03-24 13:38 | SWNOTE1 ---
JAMMIE reviewed physical therapy note and SNF was recommended. SW spoke to daughter Iris and to patient in room. SW let Iris know the recommendations of SNF. JAMMIE did explain to [place] what SNF is and what it entails. Iris did voiced she wants to do whatever is best for her mother. Pt does have Dementia. SW did let her know that pt was teary eyed this morning not knowing where she was and did not want to be here. SW advised it may be hard on her mentally. SW did let her know that pt can also get therapy back at [facility] as well. JAMMIE explained if she does get therapy back at [facility], it would not be everyday. Therapy would come in a few days of the week. Iris did ask if SW spoke to Carol at [facility]. JAMMIE advised that updates were sent to her, but SW has not spoke to her. SW to speak with Carol and then will call and update the daughter. JAMMIE called and spoke with Carol at . SW did let her know the recommendations of SNF. SW did let Carol know that pt did walk with therapy this morning and has been up and down with nursing. Carol does feel like taking her out of her environment will be tough for pt mentally. Carol voiced they are familiar with her mindset and what she does. They would have therapy come in to see her at [facility]. SW let her know that the plan is possible discharge tomorrow. Carol in agreement. SW stopped back in room and daughter was in the room as well. SW let her know that Carol in agreement with pt returning and having therapy come in to [facility] and work with her. Daughter is in agreement with the plan of pt returning to [facility] [place] and therapy from [facility] coming in to work with her. JAMMIE updated CM and an outpt order will be signed at discharge. SW to call daughter tomorrow if pt is discharged and will discuss transport.
--- NOTE | 2025-03-24 14:34 | CM.NOTE ---
Important Message From Medicare discussed with pt's daughter on the telephone, daughter verbalizes understanding. Consent over telephone completed and signed by CM. Original given to pt and copy placed on pt's chart.
[2025-03-24] MEDS: ATORVASTATIN CALCIUM 20 MG TABLET PO (21:41)
[2025-03-25] VITALS (10 sets, daily range): BP systolic 147–190; BP diastolic 77–96; PULSE 90–102; TEMP 36.6–37.1; O2SAT 86–96
[2025-03-25] MEDS: ACETAMINOPHEN 325 MG TABLET 650 MG PO (01:18)
[2025-03-25] MEDS: HYDROMORPHONE HCL 0.5 MG/0.5 ML SYRINGE 0.25 MG IV (02:47)
[2025-03-25 05:44] LABS: Hematocrit 39.7 % (36.0-48.0); Hemoglobin 12.9 g/dL (12.0-16.0); Immature Granulocytes Abs Auto 0.22 10^3/uL (0.00-0.03); Immature Granulocytes Pct Auto 1.6 % (0.0-0.5); Lymphocytes Absolute Auto 1.4 10^3/uL (1.2-3.8); Mean Corpuscular HGB Conc 32.5 g/dL (29.9-35.2); Mean Corpuscular Hemoglobin 29.9 pg (26.7-34.0); Mean Corpuscular Volume 91.9 fL (81.0-99.0); Platelet Count 366 10^3/uL (150-450); Red Blood Count 4.32 10^6/uL (4.20-5.40); White Blood Count 13.9 10^3/uL (4.0-11.0)
[2025-03-25] MEDS: PANTOPRAZOLE SODIUM 40 MG TABLET.DR PO (06:03)
[2025-03-25 06:11] LABS: Alanine Aminotransferase 24 U/L (14-59); Albumin Globulin Ratio 1.0; Albumin Level 3.4 g/dL (3.4-5.0); Alkaline Phosphatase 72 U/L (46-116); Anion Gap 13.8; Aspartate Amino Transferase 14 U/L (15-37); Blood Urea Nitrogen 33.0 mg/dL (7.0-18.0); Calcium 8.8 mg/dL (8.5-10.1); Carbon Dioxide 24.0 mmol/L (21.0-32.0); Chloride 110 mmol/L (98-107); Estimated GFR (African America 56 (>=60 mL/min/1.73m^2); Estimated GFR (Non-African Ame 47 (>=60 mL/min/1.73m^2); Globulin 3.3 g/dL; Glucose 197 mg/dL (74-106); Magnesium 2.2 mg/dL (1.8-2.4); Potassium 4.8 mmol/L (3.5-5.1); Sodium 143 mmol/L (136-145); Total Protein 6.7 g/dL (6.4-8.2)
[2025-03-25] MEDS: IPRATROPIUM/ALBUTEROL SULFATE 3 ML AMPUL.NEB IH ×2 (08:18→20:19)
[2025-03-25] MEDS: ALPRAZOLAM 0.5 MG TABLET PO (08:53)
[2025-03-25] MEDS: CLOPIDOGREL BISULFATE 75 MG TABLET PO (08:54)
[2025-03-25] MEDS: APIXABAN 5 MG TABLET PO ×2 (08:54→21:00)
[2025-03-25] MEDS: LOSARTAN POTASSIUM 50 MG TABLET 25 MG PO (08:54)
[2025-03-25] MEDS: DOXYCYCLINE MONOHYDRATE 100 MG CAPSULE PO ×2 (08:54→21:00)
[2025-03-25] MEDS: METHYLPREDNISOLONE SOD SUCC PF 40 MG/ML VIAL IVP (09:00)
--- NOTE | 2025-03-25 09:15 | CM.NOTE ---
Rounds made with Dr. Ortiz, pt requiring oxygen this am. Pt c/o increased dyspnea. No discharge today, continue treatment as ordered.
--- NOTE | 2025-03-25 10:20 | CM.NOTE ---
Daughters requesting to speak with CM. CM in to speak with daughters, updated that pt will not discharge today. All questions answered and updated daughters that Dr. Ortiz will be back in to speak with them for updates also. Pt will not discharge today. Daughters verbalize understanding.
--- NOTE | 2025-03-25 10:41 | ECG_ITS ---
The [facility] Test Date: 2025-03-25 Pat Name: WILMA STALLINGS Department: Room: [facility] Gender: Female [employer]: : 1940 Requested By: [id number] Order Number: [id number] Reading MD: CARLEEN BRADY M.D. Measurements Intervals [place] Rate: 97 P: 39 TN: 171 QRS: -3 QRSD: 73 T: 34 QT: 335 QTc: 427 Interpretive Statements SINUS RHYTHM with occasional fusion complexes Otherwise normal ECG Compared to ECG 03/22/2025 05:41:17 Sinus arrhythmia no longer present Electronically Signed On 03-25-2025 20:04:29 EST by CARLEEN BRADY M.D.
--- NOTE | 2025-03-25 10:41 | XR_ITS ---
The [address] [address] Patient Name: WILMA STALLINGS MRN: [id number] date: 1940 Sex: F Assigned Patient Location: Current Patient Location: Accession/Order Number: [id number] Exam Date: 03/25/2025 11:15 Report Date: 03/25/2025 11:33 At the request of: CALVIN BATES MD Procedure: XR chest 2V XR chest 2V 03/25/2025 11:20 AM SIGNS AND SYMPTOMS: ^Shortness of breath PROTOCOL: Frontal and lateral radiographs of the chest COMPARISON: 03/23/2025 FINDINGS: The trachea is midline. The heart and mediastinal structures are within normal limits. Atherosclerotic changes are noted in the aortic arch. There is linear scarring or atelectasis at the left lung base. There is diffuse asymmetric prominence similar to the prior exam. Pleural based scarring is noted in the left mid chest show no significant interval change. The bony thorax is intact. XR/XR chest 2V IMPRESSION: Linear scarring or atelectasis is noted at the left lung base, worse when compared to the prior exam. Otherwise unchanged chest. Impression dictated by: Tj Vasquez M.D. 03/25/2025 11:33 AM Dictation Location: [place] [address] Electronically authenticated by: [id number] Y Date: 03/25/2025 11:33
--- NOTE | 2025-03-25 10:55 | PM.IMPN1 ---
Progress Note: A&P Assessment and Plan (1) Dyspnea: Plan Hypoxic respiratory failure. Patient is mildly tachypneic and saturation 90% on room air. Bilateral, bibasilar pneumonia more so on the left side as per auscultation. COPD with exacerbation. Component of Diastolic CHF exacerbation (Acute) Her BNP is not elevated. Patient does not have JVD or lower extremities edema. Patient was given Lasix in the emergency room department. I am not impressed that the patient has CHF. On exam, the patient does have left base rhonchi. CTA does not show any pulmonary embolism. No other significant abnormalities reported by radiologist other than basilar atelectasis I reviewed the CAT scan imaging myself and I can see basilar parenchymal changes which could indicate early infiltration. I requested influenza, RSV and SARS and all came back negative In addition, patient smoked for 20 years in the past as per patient.(Her 2 daughters told me that the patient smoked for more than 50 years in her life and quit only a few years ago) She likely has underlying COPD and an element of bronchospasm and COPD exacerbation Started and continue albuterol, Atrovent and Solu-Medrol. Started in the continue patient on ceftriaxone and doxycycline Her troponin is negative twice. No clinical evidence of ACS I requested echo to see if patient has any pulmonary hypertension or cardiomyopathy. I would have ordered procalcitonin level to confirm that the patient has infectious process but not available here and may take several days to come back making it irrelevant at this time. Hypernatremia. Likely indicative of water deficit Mild SCOTTY, worse after given Lasix in the emergency room department I started patient on D5 water, 1 L. Sodium level had improved after infusion of hypotonic fluid. History of DVT on Eliquis Hypertension blood pressure is on the low side. Could again indicated volume loss Reduced her losartan dose significantly Dementia with noticeable cognitive and functional loss Chronic, subacute medical conditions not listed above, abnormal labs and imaging, incidental findings seen on labs and or imaging. These would need to be addressed. Could be addressed later on or in the outpatient setting by PCP collaboration with other needed outpatient providers when time and condition are appropriate. Goals of care discussion took place on 03/22. Patient is DNR CCA. 03/24/2025 I am continuing the patient's IV ceftriaxone 1 g every 12 hours as well as her doxycycline 100 mg p.o. twice daily. Also I am continuing the patient's DuoNeb twice daily as well as her methylprednisolone 40 mg IV every 12 hours with this plan to switch her to p.o. prednisone tomorrow. If the patient continues to improve by tomorrow I will discharge her. Her echo is pending 03/25/2025 given the patient's mild respite distress today, I ordered EKG, troponin, proBNP as well as a chest x-ray for now. Her echo yesterday showed diastolic CHF. I will give her 1 dose of Lasix IV 20 mg once. She does not have lower extremity edema however with her new tachypnea and elevated BP with IV fluid intake of around 500 ml of LR, we will treat it as fluid overload. I will slow down on the methylprednisolone and switch her to prednisone taper to decrease the steroid load and the fluid retention as well. I will continue on ceftriaxone and doxycycline for now. Discussed the plan with the patient's daughter at bedside. Answered all their questions. I will follow-up closely on the lab and imaging results. Internal Medicine - PN: Subj Subjective Interval history: Patient seen and examined at bedside. Today she was noted to have exertional dyspnea. She reports her daughter is having diffuse chest pain. When I saw the patient bedside this morning she was complaining of pain when she tries to move or when I palpated her chest. She states that she is not feeling good today. Denies to me any fever or chills. Exam Narrative Exam Narrative: pt is awake and alert. Sitting up in bed. Oriented to place, and person not to time. She is at baseline mental status, today she appears to be in mild respiratory distress. HEENT: [place] conjunctiva and NL buccal mucosa Neck: Supple, no tenderness Endocrine: No Thyromegaly. Vascular: No JVD or carotid bruit. Lymphatic: No cervical lymphadenopathy. Chest: No wheezes but there is decreased bilateral air entry. Patient saturating 92% on 2 L nasal cannula. She is slightly tachypneic to me. Not using accessory muscles and it is the abdominal wall muscles Heart RRR, no extra sound or murmur. Abd: Soft, no tenderness, no rebound and no rigidity. No signs of acute abdomen. LE: No cyanosis or clubbing, no varices or edema. No edema Neuro: Awake and alert. Able to answer questions. Able to engage in simple conversation. Unable to provide details Constitutional Vital Signs, click to edit/add: Last Vital Signs Temp 98 F 03/25/25 07:31 Pulse 97 H 03/25/25 07:31 Resp 18 03/25/25 07:31 BP 190/89 H 03/25/25 07:31 Pulse Ox 92 L 03/25/25 08:20 O2 Del Method Nasal Cannula 03/25/25 08:20 O2 Flow Rate 2 03/25/25 08:20 Internal Medicine - PN: Obj Da Labs Labs: Laboratory Results - last 24 hr 03/25/25 04:50 WBC 13.9 H RBC 4.32 Hgb 12.9 Hct 39.7 MCV 91.9 MCH 29.9 MCHC 32.5 RDW 14.2 Plt Count 366 MPV 10.4 Neut % (Auto) 85.6 H Lymph % (Auto) 9.9 L [place] % (Auto) 2.7 Eos % (Auto) 0.1 L Baso % (Auto) 0.1 L Neut # (Auto) 11.9 H Lymph # (Auto) 1.4 [place] # (Auto) 0.4 Eos # (Auto) 0.0 Baso # (Auto) 0.0 Abs Immat Gran (auto) 0.22 H Imm/Tot Granulo (auto) 1.6 H Sodium 143 Potassium 4.8 Chloride 110 H Carbon Dioxide 24.0 Anion Gap 13.8 BUN 33.0 H Creatinine 1.12 H Est GFR ( Amer) 56 L Est GFR (Non-Af Amer) 47 L BUN/Creatinine Ratio 29.5 Glucose 197 H Calcium 8.8 Magnesium 2.2 Total Bilirubin 0.2 AST 14 L ALT 24 Alkaline Phosphatase 72 Total Protein 6.7 Albumin 3.4 Globulin 3.3 Albumin/Globulin Ratio 1.0
--- NOTE | 2025-03-25 11:14 | PT.DAILY ---
Physical Therapy Daily Note PT Daily Note/Assess Start: 03/24/25 10:17 Freq: Status: Active Protocol: Document 03/25/25 10:40 EDWAR (Rec: 03/25/25 11:14 EDWAR [id number]) Physical Therapy Daily Note/Assessment Time In/Time Out Time In 10:40 Time Out 10:56 Subjective Subjective Daughters present in room. Patient is more anxious and confused today, but physically is doing better and just wants to get up and walk and move around. Patient complaints of pain, as whole body just aches and hurts but can not rate or give specific area. Therapeutic Exercise Time Therapeutic Exercise 6 Minutes (minutes) Therapeutic Exercise 0 Units Therapeutic Exercise Treatment Therapeutic Exercise Attempted exercises in seated and long sitting, patient Treatment can follow along with about 50 percent of exercises with verbal cues to stay on task for 10 reps. Had difficult time with marches today. Therapeutic Activity Time Therapeutic Activity 10 Minutes (minutes) Therapeutic Activity 1 Units Therapeutic Activity Treatment Chair Transfer Standby Assistance,Contact Guard Assist Ability Therapeutic Activity Sit to stand from several surfaces and various heights Comments was SBA, no LOB noted. Gait 30' x2 with RW SBA/CGA no LOB, verbal cues to slow down has patient is impulsive in getting to destination. Total Physical Therapy Time Total Therapy 16 Minutes Total Physical 1 Therapy Units Summary Daily Note Summary Patient demonstrated improved ability with gait and and transfers, however is more anxious today and requires verbal cuing to relax throughout RX. Verbal cues required to stay on task with exercise program. Patient will benefit from continued PT when she returns to [place] to regain strength from acute illness. Patient in chair with alarm set, family present in room. All needs were met and all questions were answered.
[2025-03-25 11:25] LABS: NT Pro B Type Natriuretic Pept 467.0 pg/mL (<=1800.0)
[2025-03-25] MEDS: FUROSEMIDE 20 MG/2 ML VIAL IVP (11:55)
--- NOTE | 2025-03-25 12:57 | SWNOTE1 ---
JAMMIE faxed updates to Carol at [facility] and let her know that pt is not discharging today. Pt is on 2 liters of oxygen at this time and does not wear home oxygen.
--- NOTE | 2025-03-25 15:25 | CT_ITS ---
[address] [address] Patient Name: WILMA STALLINGS MRN: [id number] date: 1940 Sex: F Assigned Patient Location: Current Patient Location: Accession/Order Number: [id number] Exam Date: 03/25/2025 15:20 Report Date: 03/25/2025 16:08 At the request of: CALVIN BATES MD Procedure: CT chest wo con CT chest wo con 03/25/2025 3:35 PM SIGN AND SYMPTOMS: hypoxic respiratory failure TECHNIQUE: Multidetector CT axial slices of the chest were obtained without IV contrast. Multiplanar reformats were performed and viewed on a separate workstation and reviewed to further define anatomy and possible pathology. CT was performed with one or more of the following dose reduction techniques: Automated exposure control, adjustment of the mA and/or kV according to patient size, or use of iterative reconstruction technique. COMPARISON: 03/25/2025. FINDINGS: Lower neck: Thyroid gland within normal limits, no supraclavicle adenopathy. Vessels: Atherosclerotic changes are noted in the thoracic aorta, origins of the great vessels, and coronary arteries. Mediastinum and Z[place]: Within normal limits. Heart: Normal size. No pericardial effusion. Airways: Within normal limits Lungs: Dependent airspace opacities are noted in the lung bases, left greater than right. This may represent atelectasis or developing infectious infiltrate. Pleura: Within normal limits. Chest Wall: Within normal limits. Upper Abdomen: Within normal limits. Bones: Degenerative changes are noted in the thoracic spine. CT/CT chest wo con IMPRESSION: Dependent airspace opacities are noted in the lung bases, left greater than right. This may represent atelectasis or developing infectious infiltrate. No pleural effusion or pneumothorax. Impression dictated by: Tj Vasquez M.D. 03/25/2025 4:08 PM Dictation [facility]Price[facility]ics Electronically authenticated by: [id number] Y Date: 03/25/2025 16:08
[2025-03-25] MEDS: ATORVASTATIN CALCIUM 20 MG TABLET PO (21:00)
[2025-03-25] MEDS: OXYCODONE HCL 5 MG TABLET 2.5 MG PO (21:20)
[2025-03-26 04:00] VITALS: BP 166/82; PULSE 102; TEMP 36.5; O2SAT 91
[2025-03-26] MEDS: WATER FOR INJECTION, STERILE 20 ML VIAL INJ (05:14)
[2025-03-26] MEDS: ZIPRASIDONE MESYLATE 20 MG VIAL 10 MG IM (05:14)
[2025-03-26 05:16] LABS: Hematocrit 42.3 % (36.0-48.0); Hemoglobin 13.9 g/dL (12.0-16.0); Mean Corpuscular HGB Conc 32.9 g/dL (29.9-35.2); Mean Corpuscular Hemoglobin 29.8 pg (26.7-34.0); Mean Corpuscular Volume 90.6 fL (81.0-99.0); Platelet Count 384 10^3/uL (150-450); Red Blood Count 4.67 10^6/uL (4.20-5.40); White Blood Count 15.6 10^3/uL (4.0-11.0)
[2025-03-26 05:37] LABS: Alanine Aminotransferase 25 U/L (14-59); Albumin Globulin Ratio 1.1; Albumin Level 3.6 g/dL (3.4-5.0); Alkaline Phosphatase 76 U/L (46-116); Anion Gap 12.5; Aspartate Amino Transferase 11 U/L (15-37); Blood Urea Nitrogen 32.0 mg/dL (7.0-18.0); Calcium 8.9 mg/dL (8.5-10.1); Carbon Dioxide 26.5 mmol/L (21.0-32.0); Chloride 107 mmol/L (98-107); Estimated GFR (African America 54 (>=60 mL/min/1.73m^2); Estimated GFR (Non-African Ame 45 (>=60 mL/min/1.73m^2); Globulin 3.4 g/dL; Glucose 131 mg/dL (74-106); Magnesium 2.2 mg/dL (1.8-2.4); Potassium 4.0 mmol/L (3.5-5.1); Sodium 142 mmol/L (136-145); Total Protein 7.0 g/dL (6.4-8.2)
[2025-03-26 05:39] LABS: Atypical Lymphocytes % Manual 3.0 %; Atypical Lymphocytes Abs Man 0.46; Basophils Abs Manual 0.00 10^3/uL (0.00-0.10); Basophils Percent Manual 0.0 % (0.2-2.0); Eosinophils Absolute Manual 0.00 10^3/uL (0.00-0.70); Eosinophils Percent Manual 0.0 % (0.9-7.0); Lymphocytes Absolute Manual 2.49 10^3/uL (1.20-3.80); Lymphocytes Percent Manual 16.0 % (20.5-60.0); Monocytes Absolute Manual 3.27 10^3/uL (0.30-0.80); Monocytes Percent Manual 21.0 % (1.7-12.0); Segmented Neut Absolute Manual 9.36 10^3/uL (1.4-6.5); Segmented Neutrophils % Manual 60.0 (43.0-75.0)
[2025-03-26] MEDS: IPRATROPIUM/ALBUTEROL SULFATE 3 ML AMPUL.NEB IH (07:14)
[2025-03-26 07:21] VITALS: O2SAT 93
[2025-03-26 07:31] VITALS: BP 144/78; PULSE 98; TEMP 36.6; O2SAT 93
--- NOTE | 2025-03-26 07:56 | REH.PTDLY ---
Physical Therapy Daily Note PT Daily Note/Assess Start: 03/24/25 10:17 Freq: Status: Active Protocol: Document 03/26/25 07:48 RICKKRISTOPHER (Rec: 03/26/25 07:56 ARTURO [id number]) Physical Therapy Daily Note/Assessment Time In 07:30 Time Out 07:45 Pain Level 0 Pain Level 0 Subjective Pt up in chair upon arrival, agreeable to therapy. Confused stating kids are going to wonder where she is. Nursing enters and asks how pt does without RW as yesterday she seemed to be confused with on how to use it. Therapeutic Exercise 6 Minutes (minutes) Therapeutic Exercise 0 Units Therapeutic Exercise Instructed in seated AP, LAQ, and marching. Pt needs Treatment verbal and tactile cues to stay on task. AAROM for larger ROM as pt performs small range. Instructed in standing marching and hip flexion with good performance 10x. Pt struggles to perform mini squats with UE support. Therapeutic Activity 9 Minutes (minutes) Therapeutic Activity 1 Units Therapeutic Activity Instructed in sit to stand transfers from chair CGA. Comments Gait training with RW 85 feet SBA. Pt ambulates at slow pace and needs assistance to turn RW. Ambulates ok with RW otherwise. Trialed pt ambulating without RW for 20 feet, but pt is reaching for furniture, villagran or CEPHALOMETRIC TECHNICIAN for support. Informed nursing that pt is better off with RW than without and did not struggle with RW use this morning. Total Therapy 15 Minutes Total Physical 1 Therapy Units Daily Note Summary Progressed gait distance today with pt reporting mild fatigue post gait. Needs several cues to stay on task and for proper technique with LE exs for improved strength. Pt would benefit from extended therapy after DC from hospital.
[2025-03-26] MEDS: APIXABAN 5 MG TABLET PO (09:19)
[2025-03-26] MEDS: ALPRAZOLAM 0.5 MG TABLET PO (09:19)
[2025-03-26] MEDS: ACETAMINOPHEN 325 MG TABLET 650 MG PO (09:19)
[2025-03-26] MEDS: CLOPIDOGREL BISULFATE 75 MG TABLET PO (09:19)
[2025-03-26] MEDS: DOXYCYCLINE MONOHYDRATE 100 MG CAPSULE PO (09:20)
[2025-03-26] MEDS: LOSARTAN POTASSIUM 50 MG TABLET 25 MG PO (09:20)
--- NOTE | 2025-03-26 09:30 | CM.NOTE ---
Rounds made with Dr. Ortiz, pt will discharge to home today. Pt will discharge to [facility] with PT, OT and speech services.
--- NOTE | 2025-03-26 10:15 | CM.NOTE ---
Outpatient order completed for pt (PT, OT, and speech). SW will update Mary Galvan.
--- NOTE | 2025-03-26 11:34 | P.DS_ITS ---
DS: Providers Provider Date of admission: 03/23/25 08:50 Primary care physician: Christophe Chavez ND Consults: 03/23/25 10:44 Clinical Bedside Swallow Eval and Treat Routine Reason for consultation: Swallow eval by speech 03/24/25 09:12 Occupational Therapy Eval and Treat Routine Reason for consultation: Placement Physical Therapy Eval and Treat Routine Reason for consultation: Placement Anticipated date of discharge: 03/26/25 DS: Diagnosis Discharge Diagnosis (1) Dyspnea: (2) Congestive heart failure: (3) Acute hypoxic respiratory failure: Plan As above DS: Summary Hospital Course Hospital Course: Mrs. Vargas is a 84-year-old female who was sent to the emergency room from the [place] [facility] with a complaint of chest discomfort, shortness of breath. Patient reported to me that she feels out of breath even at rest. Denies any cough. No chest pain. No fever or chills. Patient smoked for 20 years in the past. She quit many years ago. No abdominal pain, nausea or vomiting. Plan Hypoxic respiratory failure. Patient is mildly tachypneic and saturation 90% on room air. Bilateral, bibasilar pneumonia more so on the left side as per auscultation. COPD with exacerbation. Component of Diastolic CHF exacerbation (Acute) Her BNP is not elevated. Patient does not have JVD or lower extremities edema. Patient was given Lasix in the emergency room department. I am not impressed that the patient has CHF. On exam, the patient does have left base rhonchi. CTA does not show any pulmonary embolism. No other significant abnormalities reported by radiologist other than basilar atelectasis I reviewed the CAT scan imaging myself and I can see basilar parenchymal changes which could indicate early infiltration. I requested influenza, RSV and SARS and all came back negative In addition, patient smoked for 20 years in the past as per patient.(Her 2 daughters told me that the patient smoked for more than 50 years in her life and quit only a few years ago) She likely has underlying COPD and an element of bronchospasm and COPD exacerbation Started and continue albuterol, Atrovent and Solu-Medrol. Started in the continue patient on ceftriaxone and doxycycline Her troponin is negative twice. No clinical evidence of ACS I requested echo to see if patient has any pulmonary hypertension or cardiomyopathy. I would have ordered procalcitonin level to confirm that the patient has infectious process but not available here and may take several days to come back making it irrelevant at this time. Hypernatremia. Likely indicative of water deficit Mild SCOTTY, worse after given Lasix in the emergency room department I started patient on D5 water, 1 L. Sodium level had improved after infusion of hypotonic fluid. History of DVT on Eliquis Hypertension blood pressure is on the low side. Could again indicated volume loss Reduced her losartan dose significantly Dementia with noticeable cognitive and functional loss Chronic, subacute medical conditions not listed above, abnormal labs and imaging, incidental findings seen on labs and or imaging. These would need to be addressed. Could be addressed later on or in the outpatient setting by PCP collaboration with other needed outpatient providers when time and condition are appropriate. Goals of care discussion took place on 03/22. Patient is DNR CCA. 03/24/2025 I am continuing the patient's IV ceftriaxone 1 g every 12 hours as well as her doxycycline 100 mg p.o. twice daily. Also I am continuing the patient's DuoNeb twice daily as well as her methylprednisolone 40 mg IV every 12 hours with this plan to switch her to p.o. prednisone tomorrow. If the patient continues to improve by tomorrow I will discharge her. Her echo is pending 03/25/2025 given the patient's mild respite distress today, I ordered EKG, troponin, proBNP as well as a chest x-ray for now. Her echo yesterday showed diastolic CHF. I will give her 1 dose of Lasix IV 20 mg once. She does not have lower extremity edema however with her new tachypnea and elevated BP with IV fluid intake of around 500 ml of LR, we will treat it as fluid overload. I will slow down on the methylprednisolone and switch her to prednisone taper to decrease the steroid load and the fluid retention as well. I will continue on ceftriaxone and doxycycline for now. Discussed the plan with the patient's daughter at bedside. Answered all their questions. I will follow-up closely on the lab and imaging results. 03/26/2025 cardiac workup came back completely negative. Patient's symptoms today are gone. States that she is feeling much better. I spoke to her daughter who saw her this morning and stated her mom looks much better than yesterday. She states that things mom is ready for discharge today which I agree with. I will send her on p.o. Augmentin for another 3 days and doxycycline p.o. as well. Also will send her on p.o. prednisone taper for another 3 days as well. Discussed the plan with the patient and her daughter. Answered all their questions. They are in agreement with her plan. They will follow with her PCP soon. Patient passed her oxygen test as reported by the respiratory therapist and PT. Status at Discharge Overall status at discharge: patient is back to baseline Time Spent with Patient Time attestation: Total time spent providing and/or coordinating discharge services: Time spent: greater than 30 minutes Exam Narrative Exam Narrative: pt is awake and alert. Sitting up in bed. Oriented to place, and person not to time. She is at baseline mental status, not in any distress today. HEENT: [place] conjunctiva and NL buccal mucosa Neck: Supple, no tenderness Endocrine: No Thyromegaly. Vascular: No JVD or carotid bruit. Lymphatic: No cervical lymphadenopathy. Chest: No wheezes but there is decreased bilateral air entry. saturating 92% on RA, not in any respiratory distress today Heart RRR, no extra sound or murmur. Abd: Soft, no tenderness, no rebound and no rigidity. No signs of acute abdomen. LE: No cyanosis or clubbing, no varices or edema. No edema Neuro: Awake and alert. Able to answer questions. Able to engage in simple conversation. Unable to provide details Constitutional Vital Signs, click to edit/add: Last Vital Signs Temp 97.8 F 03/26/25 07:31 Pulse 98 H 03/26/25 07:31 Resp 18 03/26/25 07:31 BP 144/78 H 03/26/25 07:31 Pulse Ox 93 L 03/26/25 07:31 O2 Del Method Room Air 03/26/25 07:31 O2 Flow Rate 2 03/25/25 11:27 DS: Data Data Completed and Pending Labs on day of discharge: Labs from last 24 hours 03/26/25 05:11 WBC 15.6 H RBC 4.67 Hgb 13.9 Hct 42.3 MCV 90.6 MCH 29.8 MCHC 32.9 RDW 14.0 Plt Count 384 MPV 9.9 Seg Neuts % (Manual) 60.0 Lymphocytes % (Manual) 16.0 L Atypical Lymphs % (Man) 3.0 Monocytes % (Manual) 21.0 H Eosinophils % (Manual) 0.0 L Basophils % (Manual) 0.0 L Neutrophils # (Manual) 9.36 H Lymphocytes # (Manual) 2.49 Abs Atypical Lymphs Man 0.46 Monocytes # (Manual) 3.27 H Eosinophils # (Manual) 0.00 Basophils # (Manual) 0.00 Sodium 142 Potassium 4.0 Chloride 107 Carbon Dioxide 26.5 Anion Gap 12.5 BUN 32.0 H Creatinine 1.16 H Est GFR ( Amer) 54 L Est GFR (Non-Af Amer) 45 L BUN/Creatinine Ratio 27.6 Glucose 131 H Calcium 8.9 Magnesium 2.2 Total Bilirubin 0.3 AST 11 L ALT 25 Alkaline Phosphatase 76 Total Protein 7.0 Albumin 3.6 Globulin 3.4 Albumin/Globulin Ratio 1.1 Discharge Plan Discharge Disposition: [facility] Condition: Fair Discharge Medications: New ipratropium-albuterol 0.5 mg-3 mg(2.5 mg base)/3 mL Solution For Nebulization 3 ml inhalation BID 30 Days Qty: 180 0RF prednisone 20 mg Tablet 40 mg PO QD 3 Days Qty: 10 0RF sennosides-docusate sodium 8.6-50 mg Tablet 1 tab PO QD PRN (Reason: Constipation) 15 Days Qty: 30 0RF dextromethorphan-guaifenesin 10-100 mg/5 mL Syrup 10 ml PO Q6H PRN (Reason: Cough) 3 Days Qty: 237 0RF doxycycline monohydrate 100 mg Capsule 100 mg PO BID 3 Days Qty: 6 0RF pantoprazole 40 mg Tablet,Delayed Release (Dr/Ec) 40 mg PO ACB 30 Days Qty: 30 0RF amoxicillin-pot clavulanate [Augmentin] 500-125 mg tablet 1 tab PO BID 5 Days Qty: 10 0RF Continued alprazolam 0.5 mg tablet 0.5 mg PO .once a day Eliquis 5 mg tablet 5 mg PO Q12H atorvastatin 20 mg tablet 20 mg PO .once a day clopidogrel 75 mg tablet 75 mg PO .once a day losartan 100 mg tablet 100 mg PO .once a day One Daily Women's 18 mg iron-400 mcg-25 mcg tablet 1 tab PO .once a day Discontinued ibuprofen 600 mg tablet 600 mg PO Q6H PRN (Reason: pain) Print Language: [place] [employer] Assistant Manager/Environmental Engineering Assistant Instructions: Discharge back to [facility], they will have PT/OT from [facility] come in to [place] and provide therapy. Pt will be sent with outpt therapy order, this will be placed in packet that is sent with patient back to [facility]. A copy was sent to Carol from [facility]. Forms: Portal Instructions Follow Up Appointments: Dr. Vivian Parmar 04/14 @ 9:30am [address], [address], [place] [phone]
--- NOTE | 2025-03-26 11:36 | SWNOTE1 ---
Pt is ready for discharge today. JAMMIE spoke to the pt's daughter Iris about transportation. Iris can transport her as long as the discharge is complete sooner than later. Iris has an apt later today and has to run back home prior to apt. JAMMIE did let Iris know that Dr. Ortiz is likely working on discharges and it woudl be likely that it would be complete within 45 minutes. JAMMIE did email Carol at [facility] and let her know that pt is discharged back today and daughter transporting.
--- NOTE | 2025-03-26 11:51 | SWNOTE1 ---
JAMMIE called Carol at [facility] and let her know that pt is returning today and will likely be heading back in 30 minutes. JAMMIE faxed dc med rec and dc summary to Carol. JAMMIE took packet to the pt's daughter and requested she provide to [facility]. JAMMIE updated pt's nurse.
[2025-03-26] MEDS: PREDNISONE 20 MG TABLET 40 MG PO (12:43)
== END 2025-03-26 12:54 | disposition home or self-care (01) | DRG 193 ==
LOC: ER 13:57 → MS 14:44
PROVIDERS: Admitting Provider Internal Medicine; Emergency Provider Emergency Medicine; PCP Student in an Organized Health Care Education/Training Program; Visit Provider Student in an Organized Health Care Education/Training Program
DX: J18.9 Pneumonia, unspecified organism (principal); I50.33 Acute on chronic diastolic (congestive) heart failure; J96.91 Respiratory failure, unspecified with hypoxia; J44.0 Chronic obstructive pulmonary disease with (acute) lower respiratory infection; J44.1 Chronic obstructive pulmonary disease with (acute) exacerbation; N17.9 Acute kidney failure, unspecified; E87.0 Hyperosmolality and hypernatremia; I11.0 Hypertensive heart disease with heart failure; E78.5 Hyperlipidemia, unspecified; F03.90 Unspecified dementia, unspecified severity, without behavioral disturbance, psychotic disturbance, mood disturbance, and anxiety; Z86.718 Personal history of other venous thrombosis and embolism; Z87.891 Personal history of nicotine dependence
CPT/HCPCS: 36415; 71045; 71046; 71250; 71275; 80048; 80053; 80061; 80076; 83735; 83880; 84484; 85007; 85025; 85027; 86140; 87420; 87804; 87811; 92610; 93005; 93306; 94640; 94761; 96365; 96366; 96367; 96375; 96376; 97161; 97165; 97530; 99285; G0378; J0696; J1100; J1171; J1938; J2919; J3486; J7512; Q9967